=== PATIENT | male | born 1940 | race Caucasian/White ===

== ENCOUNTER 2020-06-19 09:23 | Emergency (ER) | payer MEDICARE, SELFPAY ==
--- NOTE | ~2020-06-19 | XR_ITS ---
EXAMINATION: XR CHEST CLINICAL INFORMATION: Chest pain. COMPARISON: None TECHNIQUE: Frontal view of the chest was obtained. FINDINGS: The lungs are well-expanded and clear acute process. The heart size and pulmonary vascularity is normal. There is moderate spondylosis dorsal spine. No lytic or sclerotic process seen XR/XR chest 1V IMPRESSION: Unremarkable chest exam.
[2020-06-19 09:38] VITALS: BP 147/69; PULSE 60; RESP 16; TEMP 36.6; O2SAT 97; BMI 33.2
--- NOTE | 2020-06-19 09:52 | ED_ITS ---
HPI - Chest Pain General Chief Complaint: Dizziness Stated Complaint: CHILLS,L CP (RESOLVED) Time Seen by Provider: 06/19/20 09:51 Source: patient Mode of arrival: ambulatory Limitations: no limitations History of Present Illness HPI narrative: Patient with no known history of coronary artery disease history of anxiety and gastro oesophageal reflux disease woke up normally at 06:00 felt some gaslike feeling in the epigastric area radiating to mid chest similar to in the past then he noticed pain in the left side of the chest with diaphoresis feeling dizzy which lasted for about 30 minutes patient never had similar feeling in the past. Never had any cardiac evaluation in the past. No chest pain after arrival. MD complaint: chest heaviness Onset (ago): hour(s) Timing of current episode: constant Prior episodes: Yes Onset: during rest Pain location: substernal and left chest Pain radiation: none Severity: moderate Quality: tightness Exacerbating factors: nothing Context: recent illness Associated symptoms: diaphoresis Related Data Allergies Allergy/AdvReac Type Severity Reaction Status Date / Time amoxicillin [AMOXICILLIN] Allergy Severe ANAPHYLAXIS Unverified 01/24/20 15:20 Penicillins [PENICILLINS] Allergy Intermediate RASH Unverified 01/24/20 15:20 Sulfa (Sulfonamide Allergy Mild UNKNOWN Unverified 01/24/20 15:20 Antibiotics) A CHILD [SULFA (SULFONAMIDE ANTIBIOTICS)] penicillin V Allergy Unknown Verified 10/22/14 00:00 Review of Systems Review of Systems: Constitutional : No Weight loss, No Fever, No Chills ENT/Mouth : No sore throat, No Rhinorrhea Eyes: No Eye Pain, No Swelling Cardiovascular : +Chest Pain, no palpitations Respiratory : No Cough, No Sputum, no shortness of breath Gastrointestinal : no Nausea, No Vomiting, No Diarrhea, No abdominal Pain, no black stools Genitourinary : No Dysuria, No Urinary Frequency Musculoskeletal : No joint pain, No Myalgias, No Joint Swelling Skin : No Skin Lesions, No rash Neuro : No Weakness, No Numbness, No Dizziness, No Headache Psych : No Anxiety/Panic, No Depression Heme/Lymph: No Bruising, No Lymphadenopathy Endocrine : No Polyuria, No Polydipsia All other systems reviewed and are negative [facility] Past Medical History Medical History Anxiety GERD (gastroesophageal reflux disease) Hip replacement planned Vertigo Surgical History Total knee replacement status Social History Social History Advance Directives: No Advance Directives Information Provided: No Physical Exam Vital Signs: Vital Signs: Last Vital Signs Temp 97.8 F 06/19/20 13:44 Pulse 58 06/19/20 13:44 Resp 16 06/19/20 13:44 BP 131/92 H 06/19/20 13:44 Pulse Ox 97 06/19/20 13:44 Body Mass Index 33.2 Appearance: Alert. Oriented X3. No acute distress. Eyes: Pupils equal, round and reactive to light. ENT: Pharynx normal. Neck: Normal inspection. Neck supple. CVS: Normal heart rate and rhythm. Pulses normal. Respiratory: No respiratory distress. Breath sounds normal. Abdomen: Soft and nontender. Bowel sounds are present, no mass palpable, no CVA tenderness Skin: Skin warm and dry. Normal skin color. Normal skin turgor. Extremities: No lower extremity edema. Neuro: Oriented X 3. No motor deficit. No sensory deficit. MDM - Chest Pain MDM Narrative Medical decision making narrative: 79 years old with chest pain with no known coronary artery disease EKG was without any acute ischemic changes 2 sets of troponin negative patient without any chest pain at this time patient's history of GERD which likely causing the pain at this time. Will discharge patient home advised to follow-up with PCP Differential Diagnosis Differential diagnosis: Likely stable angina, unstable angina pectoris and chest pain Medical Records Data Attestation: I reviewed the patient's medical records. Lab Data Attestation: I reviewed the patient's lab results. Result diagrams: 06/19/20 11:13 06/19/20 11:13 Labs: Lab Results 06/19/20 06/19/20 06/19/20 Range/Units 10:18 11:13 11:13 WBC 7.0 (4.8-10.8) X10*3/uL RBC 5.37 (4.60-5.80) X10*6/uL Hgb 15.5 (14.0-18.0) g/dl Hct 45.9 (42-52) % MCV 85.5 (80-98) fL MCH 28.9 (27.0-33.0) pg MCHC 33.8 (31.0-36.0) g/dl RDW 13.1 (11.0-16.0) % Plt Count 131 L (160-400) X10*3/uL MPV 10.5 (9.4-12.4) fL Immature Gran % (Auto) 0.3 (0.0-0.4) % Neut % (Auto) 77.9 H (45-73) % Lymph % (Auto) 14.5 L (20-40) % Moody % (Auto) 5.1 (2-11) % Eos % (Auto) 1.6 (0-4) % Baso % (Auto) 0.6 (0-2) % Lymph # (Auto) 1.0 L (1.2-4.9) X10*3/uL Moody # (Auto) 0.4 (0.1-1.2) X10*3/uL Eos # (Auto) 0.1 (0.0-0.4) X10*3/uL Baso # (Auto) 0.0 (0.0-0.2) X10*3/uL Abs Immat Gran (auto) 0.02 (0.00-0.03) X10*3/uL Absolute Neuts (auto) 5.5 (2.0-8.3) X10*3/uL Absolute Nucleated RBC 0.000 (0.0-0.012) X10*3/uL Nucleated RBC % (auto) 0.0 (0.0-0.2) /100WBC PT 12.8 (10.8-13.0) SEC INR 1.1 (0.9-1.1) APTT 29.1 (24.1-38.0) SEC Sodium (135-145) mmol/L Potassium (3.3-5.1) mmol/L Chloride (96-108) mmol/L Carbon Dioxide (22-29) mmol/L Anion Gap (12-20) BUN (9-16) mg/dL Creatinine (0.5-1.4) mg/dL Estim Creat Clear Calc Estimated GFR Random Glucose (60-115) mg/dL Calcium (8.4-10.2) mg/dL Total Bilirubin (0.0-1.0) mg/dL Direct Bilirubin (0.0-0.5) mg/dL AST (5-37) U/L ALT (0-40) U/L Alkaline Phosphatase (39-117) U/L Troponin I High Sens (<3.5-35.0) ng/L Total Protein (6.5-8.0) g/dL Albumin (3.5-5.0) g/dL COVID-19 (JENN) Negative (Negative) COVID-19 Clin Com See Note 06/19/20 06/19/20 06/19/20 Range/Units 11:13 11:13 13:18 WBC (4.8-10.8) X10*3/uL RBC (4.60-5.80) X10*6/uL Hgb (14.0-18.0) g/dl Hct (42-52) % MCV (80-98) fL MCH (27.0-33.0) pg MCHC (31.0-36.0) g/dl RDW (11.0-16.0) % Plt Count (160-400) X10*3/uL MPV (9.4-12.4) fL Immature Gran % (Auto) (0.0-0.4) % Neut % (Auto) (45-73) % Lymph % (Auto) (20-40) % Moody % (Auto) (2-11) % Eos % (Auto) (0-4) % Baso % (Auto) (0-2) % Lymph # (Auto) (1.2-4.9) X10*3/uL Moody # (Auto) (0.1-1.2) X10*3/uL Eos # (Auto) (0.0-0.4) X10*3/uL Baso # (Auto) (0.0-0.2) X10*3/uL Abs Immat Gran (auto) (0.00-0.03) X10*3/uL Absolute Neuts (auto) (2.0-8.3) X10*3/uL Absolute Nucleated RBC (0.0-0.012) X10*3/uL Nucleated RBC % (auto) (0.0-0.2) /100WBC PT (10.8-13.0) SEC INR (0.9-1.1) APTT (24.1-38.0) SEC Sodium 140 (135-145) mmol/L Potassium 4.6 (3.3-5.1) mmol/L Chloride 104 (96-108) mmol/L Carbon Dioxide 30 H (22-29) mmol/L Anion Gap 11 L (12-20) BUN 19 H (9-16) mg/dL Creatinine 0.90 (0.5-1.4) mg/dL Estim Creat Clear Calc 91.0 Estimated GFR > 60 Random Glucose 99 (60-115) mg/dL Calcium 8.8 (8.4-10.2) mg/dL Total Bilirubin 0.5 (0.0-1.0) mg/dL Direct Bilirubin 0.2 (0.0-0.5) mg/dL AST 11 (5-37) U/L ALT 9 (0-40) U/L Alkaline Phosphatase 76 (39-117) U/L Troponin I High Sens < 3.5 < 3.5 (<3.5-35.0) ng/L Total Protein 6.4 L (6.5-8.0) g/dL Albumin 3.9 (3.5-5.0) g/dL COVID-19 (JENN) (Negative) COVID-19 Clin Com ECG Data ECG #1: Attestation: I personally reviewed and interpreted this ECG as follows: Interpretation: Sinus bradycardia with heart rate 58 beats per minute normal intervals normal axis no acute ST T wave changes impression no acute ischemia Discharge Plan Discharge Clinical Impression: Chronic GERD Chest pain Qualifiers: Chest pain type: unspecified Qualified Code(s): R07.9 - Chest pain, unspecified Patient Disposition: Home, Self-Care Instructions: Chest Pain (ED), Gastroesophageal Reflux Disease (ED) Additional Instructions: Continue medications as prescribed by PCP. Follow-up with your PCP for further evaluation. Report to ER if worsening of the chest pain
--- NOTE | 2020-06-19 10:01 | ECG_ITS ---
Test Reason : CHEST PAIN Blood Pressure : / mmHG Vent. Rate : 058 BPM Atrial Rate : 058 BPM P-R Int : 160 ms QRS Dur : 088 ms QT Int : 422 ms P-R-T Axes : 050 -24 056 degrees QTc Int : 414 ms Sinus bradycardia with sinus arrhythmia Otherwise normal ECG When compared with ECG of 05-JUN-2019 18:35, No significant change was found Referred By: Lucio Irwin Electronically Signed By:LONNIE MAN MD
[2020-06-19 11:14] VITALS: BP 146/80; PULSE 57; RESP 15; TEMP 36.4; O2SAT 98
[2020-06-19 11:15] VITALS: BP 136/72; PULSE 58; RESP 16
[2020-06-19 11:19] LABS: MANUAL DIFF FLAG NO
[2020-06-19 11:24] LABS: Basophils Percent Auto 0.6 % (0-2); Eosinophils Absolute Auto 0.1 X10*3/uL (0.0-0.4); Eosinophils Percent Auto 1.6 % (0-4); Hematocrit 45.9 % (42-52); Hemoglobin 15.5 g/dl (14.0-18.0); Imm Gran Abs Auto 0.02 X10*3/uL (0.00-0.03); Imm Gran Pct Auto 0.3 % (0.0-0.4); Lymphocytes Percent Auto 14.5 % (20-40); Mean Corpuscular HGB Conc 33.8 g/dl (31.0-36.0); Mean Corpuscular Hemoglobin 28.9 pg (27.0-33.0); Mean Corpuscular Volume 85.5 fL (80-98); Mean Platelet Volume 10.5 fL (9.4-12.4); Monocytes Absolute Auto 0.4 X10*3/uL (0.1-1.2); Monocytes Percent Auto 5.1 % (2-11); Neutrophils Absolute Auto 5.5 X10*3/uL (2.0-8.3); Neutrophils Percent Auto 77.9 % (45-73); Platelet Count 131 X10*3/uL (160-400); Red Blood Count 5.37 X10*6/uL (4.60-5.80); Red Cell Distribution Width 13.1 % (11.0-16.0)
[2020-06-19 11:34] LABS: INTERNATIONAL NORM RATIO 1.1 (0.9-1.1); Prothrombin Time 12.8 SEC (10.8-13.0)
[2020-06-19 11:37] LABS: Partial Thromboplastin Time 29.1 SEC (24.1-38.0)
[2020-06-19 11:42] LABS: COVID-19 Test Negative (Negative); IDNOW Serial# 9DD0AD1C
[2020-06-19 11:48] LABS: Alanine Aminotransferase 9 U/L (0-40); Albumin Level 3.9 g/dL (3.5-5.0); Alkaline Phosphatase 76 U/L (39-117); Anion Gap 11 (12-20); Aspartate Amino Transferase 11 U/L (5-37); Bilirubin Direct 0.2 mg/dL (0.0-0.5); Bilirubin Total 0.5 mg/dL (0.0-1.0); Blood Urea Nitrogen 19 mg/dL (9-16); Calcium 8.8 mg/dL (8.4-10.2); Carbon Dioxide 30 mmol/L (22-29); Chloride 104 mmol/L (96-108); Estimated Glomerular Filt Rate > 60; Glucose Random 99 mg/dL (60-115); Potassium 4.6 mmol/L (3.3-5.1); Sodium 140 mmol/L (135-145); Total Protein 6.4 g/dL (6.5-8.0)
[2020-06-19 11:49] LABS: Troponin-I High Sensitivity < 3.5 ng/L (<3.5-35.0)
[2020-06-19 13:44] VITALS: BP 131/92; PULSE 58; RESP 16; TEMP 36.6; O2SAT 97
[2020-06-19 13:55] LABS: Troponin-I High Sensitivity < 3.5 ng/L (<3.5-35.0)
== END 2020-06-19 14:58 | disposition home or self-care (01) ==
PROVIDERS: Emergency Provider Internal Medicine; PCP Internal Medicine
DX: K21.9 Gastro-esophageal reflux disease without esophagitis (principal); R07.9 Chest pain, unspecified; R42 Dizziness and giddiness; Z20.822 Contact with and (suspected) exposure to COVID-19
CPT/HCPCS: 36415; 71045; 80048; 80076; 84484; 85025; 85610; 85730; 87635; 93005; 99284

== ENCOUNTER 2020-08-04 09:56 | Outpatient (REF) | payer MEDICARE, SELFPAY ==
[2020-08-04 14:40] LABS: Anion Gap 15 (12-20); Blood Urea Nitrogen 21 mg/dL (9-16); Calcium 9.1 mg/dL (8.4-10.2); Carbon Dioxide 27 mmol/L (22-29); Chloride 104 mmol/L (96-108); Estimated Glomerular Filt Rate > 60; Glucose Random 92 mg/dL (60-115); Potassium 4.6 mmol/L (3.3-5.1); Sodium 141 mmol/L (135-145)
== END 2020-08-04 09:57 | disposition home or self-care (01) ==
LOC: HO.10HDL 09:56
PROVIDERS: Visit Provider Internal Medicine
DX: I10 Essential (primary) hypertension (principal); M19.90 Unspecified osteoarthritis, unspecified site
CPT/HCPCS: 36415; 80048

== ENCOUNTER 2021-02-24 10:26 | Outpatient (REF) | payer MEDICARE, SELFPAY ==
[2021-02-24 13:47] LABS: Basophils Percent Auto 0.6 % (0-2); Eosinophils Absolute Auto 0.1 X10*3/uL (0.0-0.4); Eosinophils Percent Auto 2.1 % (0-4); Hematocrit 47.9 % (42-52); Hemoglobin 16.2 g/dl (14.0-18.0); Imm Gran Abs Auto 0.02 X10*3/uL (0.00-0.03); Imm Gran Pct Auto 0.3 % (0.0-0.4); Lymphocytes Absolute Auto 1.4 X10*3/uL (1.2-4.9); Lymphocytes Percent Auto 20.4 % (20-40); MANUAL DIFF FLAG NO; Mean Corpuscular HGB Conc 33.8 g/dl (31.0-36.0); Mean Corpuscular Hemoglobin 28.7 pg (27.0-33.0); Mean Corpuscular Volume 84.9 fL (80-98); Mean Platelet Volume 11.1 fL (9.4-12.4); Monocytes Absolute Auto 0.5 X10*3/uL (0.1-1.2); Monocytes Percent Auto 6.8 % (2-11); Neutrophils Absolute Auto 4.7 X10*3/uL (2.0-8.3); Neutrophils Percent Auto 69.8 % (45-73); Platelet Count 164 X10*3/uL (160-400); Red Blood Count 5.64 X10*6/uL (4.60-5.80); Red Cell Distribution Width 13.5 % (11.0-16.0); White Blood Count 6.8 X10*3/uL (4.8-10.8)
[2021-02-24 14:43] LABS: Alanine Aminotransferase 9 U/L (0-40); Albumin Level 4.2 g/dL (3.5-5.0); Alkaline Phosphatase 83 U/L (39-117); Anion Gap 16 (12-20); Aspartate Amino Transferase 14 U/L (5-37); Bilirubin Total 0.7 mg/dL (0.0-1.0); Blood Urea Nitrogen 24 mg/dL (9-16); Calcium 9.2 mg/dL (8.4-10.2); Carbon Dioxide 23 mmol/L (22-29); Chloride 106 mmol/L (96-108); Cholesterol 150 mg/dL; Estimated Glomerular Filt Rate > 60; Glucose Fasting 94 mg/dL (60-99); HDL Cholesterol 46 mg/dL; LDL Cholesterol Calculated 88 mg/dl; Potassium 4.2 mmol/L (3.3-5.1); Sodium 141 mmol/L (135-145); Total Protein 6.9 g/dL (6.5-8.0); Triglycerides 84 mg/dL
[2021-02-24 16:42] LABS: Appearance Urine CLOUDY; Color Urine YELLOW; Glucose Urine UA NEG (NEG); Leukocyte Esterase Urine 2+ (NEG); Nitrite Urine NEG (NEG); Specific Gravity - Urine 1.015 (1.005-1.025); UACC Culture Trigger YES; Urine Blood TRACE (NEG); Urine Ketones 5 MG/DL (NEG); Urine Protein 1+ MG/DL (NEG-TRACE)
[2021-02-24 16:51] LABS: Bacteria Urine 3+ /LPF; Squamous Epithelial Cell Urine TRACE /LPF; WBC Urine 50-75 /HPF (0-4)
== END 2021-02-24 10:27 | disposition home or self-care (01) ==
LOC: HO.10HDL 10:26
PROVIDERS: Visit Provider Internal Medicine
DX: I10 Essential (primary) hypertension (principal); R30.0 Dysuria; N40.0 Benign prostatic hyperplasia without lower urinary tract symptoms; K21.9 Gastro-esophageal reflux disease without esophagitis; M19.90 Unspecified osteoarthritis, unspecified site
CPT/HCPCS: 36415; 80053; 80061; 81001; 85025; 87086

== ENCOUNTER 2021-03-02 08:39 | Outpatient (REF) | payer MEDICARE, SELFPAY ==
[2021-03-02 14:08] LABS: Appearance Urine CLOUDY; Color Urine YELLOW; Glucose Urine UA NEG (NEG); Leukocyte Esterase Urine 2+ (NEG); Nitrite Urine POS (NEG); UACC Culture Trigger YES; Urine Blood 1+ (NEG); Urine Ketones NEG (NEG); Urine Protein TRACE MG/DL (NEG-TRACE)
[2021-03-02 14:27] LABS: Bacteria Urine 1+ /LPF; Squamous Epithelial Cell Urine 1+ /LPF; WBC Urine TNTC /HPF (0-4)
== END 2021-03-02 08:40 | disposition home or self-care (01) ==
LOC: HO.10HDL 08:39
PROVIDERS: Visit Provider Internal Medicine
DX: R35.0 Frequency of micturition (principal)
CPT/HCPCS: 81001; 87086

== ENCOUNTER 2021-12-08 08:52 | Outpatient (REF) | payer MEDICARE, SELFPAY ==
[2021-12-08 11:22] LABS: MANUAL DIFF FLAG NO
[2021-12-08 11:46] LABS: Basophils Absolute Auto 0.1 X10*3/uL (0.0-0.2); Basophils Percent Auto 0.9 % (0-2); Eosinophils Absolute Auto 0.2 X10*3/uL (0.0-0.4); Eosinophils Percent Auto 3.2 % (0-4); Hematocrit 47.1 % (42.0-52.0); Hemoglobin 15.3 g/dl (14.0-18.0); Imm Gran Abs Auto 0.02 X10*3/uL (0.00-0.03); Imm Gran Pct Auto 0.4 % (0.0-0.4); Lymphocytes Absolute Auto 1.4 X10*3/uL (1.2-4.9); Lymphocytes Percent Auto 25.8 % (20-40); Mean Corpuscular HGB Conc 32.5 g/dl (31.0-36.0); Mean Corpuscular Hemoglobin 27.2 pg (27.0-33.0); Mean Corpuscular Volume 83.7 fL (80.0-98.0); Mean Platelet Volume 10.7 fL (9.4-12.4); Monocytes Absolute Auto 0.4 X10*3/uL (0.1-1.2); Monocytes Percent Auto 6.9 % (2-11); Neutrophils Absolute Auto 3.4 x10*3/uL (2.0-8.3); Neutrophils Percent Auto 62.8 % (45-73); Platelet Count 145 X10*3/uL (160-400); Red Blood Count 5.63 X10*6/uL (4.60-5.80); Red Cell Distribution Width 13.2 % (11.0-16.0); White Blood Count 5.4 X10*3/uL (4.8-10.8)
[2021-12-08 12:13] LABS: Alanine Aminotransferase 6 U/L (0-40); Alkaline Phosphatase 92 U/L (39-117); Anion Gap 17 (12-20); Aspartate Amino Transferase 12 U/L (5-37); Bilirubin Total 0.6 mg/dL (0.0-1.0); Blood Urea Nitrogen 17 mg/dL (9-16); Carbon Dioxide 23 mmol/L (22-29); Chloride 104 mmol/L (96-108); Estimated Glomerular Filt Rate > 60; Glucose Random 109 mg/dL (60-115); Potassium 4.4 mmol/L (3.3-5.1); Sodium 140 mmol/L (135-145); Total Protein 6.7 g/dL (6.5-8.0)
== END 2021-12-08 08:53 | disposition home or self-care (01) ==
LOC: HO.HMGCLDS 08:52
PROVIDERS: PCP Internal Medicine; Visit Provider Internal Medicine
DX: I10 Essential (primary) hypertension (principal); N40.0 Benign prostatic hyperplasia without lower urinary tract symptoms
CPT/HCPCS: 36415; 80053; 85025

== ENCOUNTER 2022-06-16 08:27 | Outpatient (REF) | payer MEDICARE, SELFPAY ==
[2022-06-16 11:34] LABS: Cholesterol 143 mg/dL; HDL Cholesterol 44 mg/dL; LDL Cholesterol Calculated 85 mg/dl; Triglycerides 72 mg/dL
== END 2022-06-16 08:28 | disposition home or self-care (01) ==
LOC: HO.10HDL 08:27
PROVIDERS: Visit Provider Internal Medicine
DX: K21.9 Gastro-esophageal reflux disease without esophagitis (principal); I10 Essential (primary) hypertension
CPT/HCPCS: 36415; 80061

== ENCOUNTER → 2023-02-28 07:42 | Outpatient (REF) | payer MEDICARE, SELFPAY ==
--- NOTE | 2023-02-28 07:45 | CA_ITS ---
Transthoracic Echocardiogram Patient (Last, First, Middle): Aki Vickers R Gender: Male Date of : 1940 Age: 82 Procedure Date: 02/28/2023 Procedure Type: Transthoracic Echocardiogram Location: OP Height: 182.88 cm Weight: 112.49 kg BSA: 2.33 m2 Heart Rate: 71 bpm BP: 145 / 90 mmHg Oncology Radiation Physician: DELTA Referring MD: Lam Reid MD Blanket Weaver: Gerardo Triana MD Symptoms: R06.02 SOB WITH SANTACRUZ Study Quality: Technically Difficult/w Contrast ECG Rhythm: Arrhythmia Conclusions: - 1. Technically difficult study despite use of contrast agent 2. Normal LV ejection fraction of 60- 65% with mild LVH 3. Limited visualization cardiac valves with normal cardiac valvular Dopplers 4. Normal measured RV systolic pressure Findings Procedure Information Contrast agent, definity, is being given per protocol without apparent complications. Left Ventricle Normal left ventricular size and systolic function. There is mildly increased left ventricular wall thickness. Spectral Doppler is indicative of an impaired relaxation filling pattern. Right Ventricle The right ventricle was not well visualized. Atria The left atrium was not well visualized. Interatrial shunt cannot be excluded. The right atrium was not well visualized. Aortic Valve The aortic valve was not well visualized. There is no aortic valve stenosis. There is no aortic valve regurgitation. Mitral Valve The mitral valve was not well visualized. There is no mitral valve regurgitation. Pulmonic Valve The pulmonic valve was not well visualized. Tricuspid Valve The tricuspid valve was not well visualized. There is trace tricuspid valve regurgitation. The right ventricular systolic pressure is normal. The right ventricular systolic pressure is 19 mmHg. Normal right atrial pressure. Great Vessels The aorta was not well visualized. The pulmonary artery was not well visualized. Venous The inferior vena cava is normal in size and collapses greater than 50% with inspiration. Pericardium/Pleural The pericardium was not well visualized. Prior Study Comparison No prior study available for comparison. Measurements 2D Linear Measurements IVSd: 1.21 0.6-0.9/0.6-1.0 cm LVIDd: 5.09 3.9-5.3/4.2-5.9 cm LVIDd Index: 2.18 2.4-3.2/2.2-3.1 cm/m2 LVIDs: 3.07 2.0-3.6 cm LVPWd: 1.28 0.7-1.1 cm LA Diam: 4.70 2.7-3.8/3.0-4.0 cm LAIDs Index: 2.02 1.5-2.3 cm/m2 LV Mass: 315.79 67-162/88-224 g LV Mass Index: 135.53 43-95/49-115 g/m2 LVOT Diam: 2.30 3.0+(-)1.3 cm 2D Systolic Function EF 4C: 68.80 >55% EF 2C: 51.10 >55% EF BiP: 62.50 >55% Mitral Valve MV Pk E: 0.83 MV PK A: 0.69 MV Decel Time: 215.00 E/A: 1.20 E'Lateral: 7.40 E'Medial: 7.83 E/E' Med: 10.60 E/E' Lat: 11.20 PHT: 63.00 MVA PHT: 3.49 Decel Isabela: 3.87 Aortic Valve AoV Pk Troy: 1.14 AoV Mn Troy: 0.85 AoV VTI: 0.25 AoV Pk Grad: 5.00 Aov Mn Grad: 3.00 HAYDEE Cont.VTI: 2.73 LVOT LVOT Pk Troy: 0.78 LVOT Mn Troy: 0.53 LVOT VTI: 0.17 LVOT Pk Grad: 2.00 LVOT Mn Grad: 1.00 LVOT Diam: 2.30 LVOT Area: 4.15 Diastolic Function MV Pk E: 0.83 MV Pk A: 0.69 E/A: 1.20 E'Medial: 7.83 E/E' Med: 10.60 E' Laterial: 7.40 E/E' Lat: 11.20 Right Ventricle TAPSE (mm): 31.00 TVS' Troy: 17.10 Tricuspid Valve TR Pk Troy: 2.00 TR Pk Grad: 16.00 RA Press: 3.00 RVSP: 19.00 Great Vessels Aorta Sinus of Valsalva: 4.00 2.0-3.5 cm Ao Asc: 3.30 2.1-3.4 cm Pulmonary Valve PV Pk Troy: 0.84 Peak PV Grad: 3.00 Updated in Other Vendor System with Status of Final Gerardo Triana MD electronically signed on 03/01/2023 12:07:57 PM with status of Final
== END ==
LOC: HO.CARD 07:42
PROVIDERS: PCP Internal Medicine; Visit Provider Internal Medicine
DX: R06.02 Shortness of breath (principal)
CPT/HCPCS: 93306; Q9957

== ENCOUNTER → 2023-02-28 07:45 | Outpatient (BNV) | payer MEDICARE, SELFPAY | PROVIDERS: PCP Internal Medicine; Visit Provider Internal Medicine Cardiovascular Disease | DX: R06.02 Shortness of breath (principal) | CPT/HCPCS: 93306 ==

== ENCOUNTER 2023-03-06 07:05 | Emergency (ER) | payer MEDICARE, SELFPAY ==
[2023-03-06 07:08] VITALS: BP 148/74; PULSE 100; RESP 18; TEMP 36.6; O2SAT 98; BMI 34.4
--- NOTE | 2023-03-06 07:52 | ED.MALEGU ---
HPI - Male Genitourinary General Chief complaint: Urogenital-Male Stated complaint: urinating blood Time Seen by Provider: 03/06/23 07:26 Source: patient and family (Son) Mode of arrival: ambulatory History of Present Illness HPI Narrative: 82-year-old male with known BPH in currently on finasteride presents with complaints of straining to urinate last night and then noted blood in his urine without any abdominal/pelvic pain and otherwise no pain or burning on urination. Patient states that several times throughout the night he has had blood in his urine but also increase the amount of water intake and states that his last urination at home appeared to have cleared up. He is currently followed at [facility]. Related Data Previous Rx's Medication Instructions Recorded sucralfate 1 gram tablet (Carafate) 1 g PO TID PRN For stomach upset 06/19/20 #90 tabs acetaminophen 300 mg-codeine 15 mg 1 tab PO BID PRN pain #14 tabs 08/10/22 tablet azithromycin 250 mg tablet See Rx Instructions PO .COMPLEX #6 08/10/22 tabs valacyclovir 500 mg tablet 500 mg PO BID #14 tabs 08/10/22 nitrofurantoin 100 mg PO Q12H 7 days #14 caps 03/06/23 monohydrate/macrocrystals 100 mg capsule (Macrobid) Allergies Allergy/AdvReac Type Severity Reaction Status Date / Time amoxicillin [AMOXICILLIN] Allergy Severe ANAPHYLAXIS Verified 03/06/23 07:08 Penicillins [PENICILLINS] Allergy Intermediate RASH Verified 03/06/23 07:08 Sulfa (Sulfonamide Allergy Mild UNKNOWN Verified 03/06/23 07:08 Antibiotics) A CHILD [SULFA (SULFONAMIDE ANTIBIOTICS)] penicillin V Allergy Unknown Hives Verified 03/06/23 07:08 Review of Systems Review of Systems: Pertinent positives and negatives as stated in HPI [facility] Past Medical History Source: nursing notes reviewed Medical History Vertigo Hip replacement planned Anxiety GERD (gastroesophageal reflux disease) Surgical History Total knee replacement status Social History Social History Patient Tobacco Use Status: Former Tobacco user Smoked in Last 30 Days: No Use of substances other than those prescribed or required for medical reasons: No Advance Directives: No Advance Directives Information Provided: Yes Physical Exam Vital Signs: Vital Signs: Last Vital Signs Temp 98 F 03/06/23 07:08 Pulse 100 03/06/23 07:08 Resp 18 03/06/23 07:08 BP 148/74 H 03/06/23 07:08 Pulse Ox 98 03/06/23 07:08 O2 Del Method Room Air 03/06/23 07:08 BMI result Body Mass Index 34.4 VITAL SIGNS: Reviewed. GENERAL: Well developed, well nourished, in no acute distress. HEAD: Normocephalic/atraumatic EYES: PERRLA, EOMI EARS: Ext canals without abnormality NOSE: Nares patent bilateral OROPHARYNX: no oral lesions noted, posterior pharynx clear NECK: Supple, no adenopathy LUNGS: Normal breath sounds. No adventitious sounds or accessory muscle use. SpO2<98> CARDIOVASCULAR: Regular rate and rhythm without noted murmurs ABDOMEN: Soft, non-tender, non-distended with bowel sounds. MUSCULOSKELETAL: No tenderness, deformities, or effusions noted on gross inspection. EXTREMITIES: No cyanosis, clubbing or edema. SKIN: Inspection of the skin reveals no rashes NEUROLOGIC: Alert and oriented x 4. Strength and sensation to light touch were grossly intact x 4. Medical Decision Making Medical Decision Making [facility] Narrative: 82-year-old male with history and clinical presentation most consistent with transient prostatic bleeding secondary to strain but will rule out urinary tension/urinary tract infection. It does seem as per patient's history that the urine has already begun to clear up. Patient is not currently on any anticoagulation. PreBladderScan: 242 PVR: 97 My interpretation is that patient has a urinary tract infection with associated prostatic bleeding, will receive 1st dose of antibiotics here in the emergency room and be discharged on remaining course. In addition, patient will be referred back to his outpatient urologist. Differential Diagnosis Differential Diagnoses: The differential diagnosis associated with the presentation includes Please see the discussion above Admission/Observation Consideration of admission/observation: Escalation of care including admission/observation considered Please see the discussion above Lab Data [facility] Lab Attestation statement: I reviewed the patient's lab results. Please see the discussion above Labs: Lab Results 03/06/23 Range/Units 08:45 Urine Color Red A Urine Appearance Cloudy Urine pH 8.5 (5.0-9.0) Ur Specific [place] 1.010 (1.005-1.025) Urine Protein Trace (Neg-Trace) mg/dL Urine Glucose (UA) Negative (Negative) mg/dL Urine Ketones Negative (Negative) mg/dL Urine Blood Large (3+) H (Negative) Urine Nitrite Negative (Negative) Ur Leukocyte Esterase Moderate (2+) H (Negative) Urine RBC >20 H (0-2) /HPF Urine WBC >50 H (0-5) /HPF Ur Squamous Epith Cells 0-2 (0-2) /HPF Urine Bacteria None Seen (None Seen) Hyaline Casts 0-2 (0-2) /LPF Chronic Conditions Patient?s care impacted by: Hypertension Discharge Plan Discharge Clinical Impression: Urinary tract infection, Hematuria Patient Disposition: Home, Self-Care Instructions: Urinary Tract Infection in Men (ED), Hematuria (ED) Additional Instructions: 1. Resume all home medications as prescribed. 2. Complete the entire course of antibiotics as prescribed. And continue to drink plenty of water. 3. Please follow-up with your urologist by calling the office on Tuesday morning. 4. Please contact your primary care provider as well. Return to the ER for any worsening symptoms. Prescriptions: New nitrofurantoin monohyd/m-cryst [Macrobid] 100 mg capsule 100 mg PO Q12H 7 Days Qty: 14 0RF Rx Instructions: must administer with a meal/food No Action sucralfate [Carafate] 1 gram tablet 1 g PO TID PRN (Reason: For stomach upset) Qty: 90 0RF Rx Instructions: Take 1 tablet 1 hour before your meals valacyclovir 500 mg tablet 500 mg PO BID Qty: 14 0RF acetaminophen-codeine 300-15 mg tablet 1 tab PO BID PRN (Reason: pain) Qty: 14 0RF azithromycin 250 mg tablet See Rx Instructions PO .COMPLEX Qty: 6 0RF Rx Instructions: take 500 mg today (day 1), then 250 mg for 4 days (days 2-5) PO Referrals: Lam Reid MD [Primary Care Provider] -
[2023-03-06 08:54] LABS: Appearance Urine Cloudy; Color Urine Red; Glucose Urine UA Negative (Negative); Leukocyte Esterase Urine Moderate (2+) (Negative); Nitrite Urine Negative (Negative); PH 8.5 (5.0-9.0); UMIC TRIGGER UACC YES; Urine Blood Large (3+) (Negative); Urine Ketones Negative (Negative); Urine Protein Trace mg/dL (Neg-Trace)
[2023-03-06 08:58] LABS: Bacteria Urine None Seen (None Seen); Hyaline Casts Urine 0-2 /LPF (0-2); RBC Urine >20 /HPF (0-2); Squamous Epithelial Cell Urine 0-2 /HPF (0-2); UACC Culture Trigger YES; WBC Urine >50 /HPF (0-5)
[2023-03-06 09:04] VITALS: BP 145/75; PULSE 62; RESP 16; TEMP 36.5; O2SAT 97
--- NOTE | 2023-03-06 09:07 | PC.NURSE ---
this RN resumed care of pt at this time. a&ox3, vss and up to date. pt able to ambulate to bathroom w/ cane w/ a steady gait and no difficulties. pt states most recent urine appearance was clear. urine sample bedside is dark red. pt verbalizes sx of urinary frequency/hematuria started yesterday. pt denies dysuria/n/fever/chills. tech performed bladder scan - pre = 242ml & post = 97ml. abdomen nontender upon palpation. pt resting comfortably in bed in no apparent distress. son bedside for support. respirations even and unlabored. call sanchez placed within reach.
[2023-03-06] MEDS: Nitrofurantoin Monohyd/M-Cryst 100 MG CAPSULE PO (09:28)
--- NOTE | 2023-03-06 09:29 | PC.NURSE ---
medicated per provider order/provided w/ d/c paperwork.
== END 2023-03-06 09:30 | disposition home or self-care (01) ==
PROVIDERS: Emergency Provider Student in an Organized Health Care Education/Training Program; PCP Internal Medicine
DX: N39.0 Urinary tract infection, site not specified (principal); R31.9 Hematuria, unspecified; Z87.891 Personal history of nicotine dependence; Z79.899 Other long term (current) drug therapy
CPT/HCPCS: 51798; 81001; 87086; 99284

== ENCOUNTER 2023-03-28 08:16 | Outpatient (REF) | payer MEDICARE, SELFPAY ==
[2023-03-28 10:34] LABS: MANUAL DIFF FLAG NO
[2023-03-28 10:49] LABS: Basophils Absolute Auto 0.1 X10*3/uL (0.0-0.2); Basophils Percent Auto 0.8 % (0-2); Eosinophils Absolute Auto 0.2 X10*3/uL (0.0-0.4); Eosinophils Percent Auto 2.7 % (0-4); Hematocrit 43.3 % (42.0-52.0); Hemoglobin 14.1 g/dl (14.0-18.0); Imm Gran Abs Auto 0.02 X10*3/uL (0.00-0.03); Imm Gran Pct Auto 0.3 % (0.0-0.4); Lymphocytes Absolute Auto 1.3 X10*3/uL (1.2-4.9); Lymphocytes Percent Auto 17.4 % (20-40); Mean Corpuscular HGB Conc 32.6 g/dl (31.0-36.0); Mean Corpuscular Hemoglobin 26.3 pg (27.0-33.0); Mean Corpuscular Volume 80.8 fL (80.0-98.0); Mean Platelet Volume 10.1 fL (9.4-12.4); Monocytes Absolute Auto 0.6 X10*3/uL (0.1-1.2); Monocytes Percent Auto 7.8 % (2-11); Neutrophils Absolute Auto 5.3 x10*3/uL (2.0-8.3); Platelet Count 199 X10*3/uL (160-400); Red Blood Count 5.36 X10*6/uL (4.60-5.80); Red Cell Distribution Width 13.9 % (11.0-16.0); White Blood Count 7.5 X10*3/uL (4.8-10.8)
[2023-03-28 11:26] LABS: Alanine Aminotransferase 5 U/L (0-40); Albumin Level 3.6 g/dL (3.5-5.0); Alkaline Phosphatase 91 U/L (39-117); Anion Gap 13 (12-20); Aspartate Amino Transferase 10 U/L (5-37); Bilirubin Total 0.6 mg/dL (0.0-1.0); Blood Urea Nitrogen 15 mg/dL (9-16); Calcium 9.2 mg/dL (8.4-10.2); Carbon Dioxide 27 mmol/L (22-29); Chloride 104 mmol/L (96-108); Cholesterol 130 mg/dL (<200); Estimated Glomerular Filt Rate > 60; Glucose Fasting 95 mg/dL (60-99); HDL Cholesterol 41 mg/dL (>40); LDL Cholesterol Calculated 76 mg/dL (<100); Potassium 3.8 mmol/L (3.3-5.1); Sodium 140 mmol/L (135-145); Total Protein 7.3 g/dL (6.5-8.0); Triglycerides 67 mg/dL (<150)
[2023-03-28 11:30] LABS: Prostate Specific Antigen Scr 1.68 ng/mL (<0.05-4.0)
== END 2023-03-28 08:17 | disposition home or self-care (01) ==
LOC: HO.10HDL 08:16
PROVIDERS: Visit Provider Internal Medicine
DX: I10 Essential (primary) hypertension (principal); K57.90 Diverticulosis of intestine, part unspecified, without perforation or abscess without bleeding; N40.0 Benign prostatic hyperplasia without lower urinary tract symptoms; K21.9 Gastro-esophageal reflux disease without esophagitis; Z12.5 Encounter for screening for malignant neoplasm of prostate
CPT/HCPCS: 36415; 80053; 80061; 84153; 85025

== ENCOUNTER 2023-09-13 08:49 | Outpatient (AMB) | payer MEDICARE, SELFPAY ==
[2023-09-13 08:58] VITALS: BMI 33.9
--- NOTE | 2023-09-13 08:58 | A.OFFVIS_ITS ---
Vital Signs 09/13/23 08:58 Height 6 ft Weight 250 lb BMI 33.9 Intake Visit Reasons: New Pt - Left 3rd Digit Trigger Finger Intake Note: Aki is a 83 year old male who presents today as a new patient for a evaluation of his left 3rd digit trigger finger. Patient reports ongoing locking for about 1 month . He states that his middle finger stays locked in place when he pulls. Reports swelling, trouble gripping, and hand weakness. Hvac Residential Service Technician Required: No Accompanied by: Self / Same As Patient Allergies amoxicillin [AMOXICILLIN] Allergy (Severe, Verified 09/13/23 08:59) ANAPHYLAXIS Penicillins [PENICILLINS] Allergy (Intermediate, Verified 09/13/23 08:59) RASH Sulfa (Sulfonamide Antibiotics) [SULFA (SULFONAMIDE ANTIBIOTICS)] Allergy (Mild, Verified 09/13/23 08:59) UNKNOWN A CHILD penicillin V Allergy (Unknown, Verified 09/13/23 08:59) Hives HPI HPI New Pt - Left 3rd Digit Trigger Finger: Details: 83-year-old male who presents in the office today, as a new patient, for an janelle luation of a left middle finger pain. Patient was referred to the office by Dr. Lam Reid. He reports ongoing locking for the past month, since 08/2023. He claims the left middle finger stays locked until he pulls it. Confirms edema, trouble gripping, and weakness. [facility] Medical History Vertigo Hip replacement planned Anxiety GERD (gastroesophageal reflux disease) Surgical History Total knee replacement status Social History Patient Tobacco Use Status: Former Tobacco user Review of Systems Const All systems reviewed & are unremarkable except as noted in HPI and below Physical Exam Vital Signs: BMI result Body Mass Index 33.9 Const General: cooperative, healthy appearing and no acute distress Orientation/consciousness: patient oriented x3 Resp Effort & Inspection: normal respiratory effort and able to speak in complete sentences Cardio Rate: regular rate Peripheral pulses: Peripheral pulses 2+ throughout GI Palpation (GI): Soft to palpation Skin General skin exam: no rashes or lesions noted Lesions: no lesions Rashes: no rashes Neuro General: patient oriented x3 Extrem Other: Left hand: Normal to inspection. No ecchymosis, erythema, or edema. Able to perform full finger flexion, extension, abduction, adduction, finger cross, okay sign, and thumbs up without deficit. Able to make a closed fist. Active triggering of the middle finger. Pain with palpation over the middle finger A1 jill. Baseline hand tremor. Sensation intact. Capillary refill is brisk. Radial pulse intact. Office Procedures Joint Inj/Aspir; Non-Pain Clin Joint Injection/Drain Prep: site was prepped using aseptic technique and injection warnings given Approach Used: other (volar at the A1 jill ) Procedure: The patient tolerated the procedure well, but had some pain with the injection and there was some relief with the local anesthesia Trigger Finger Trigger Finger Middle Joint Injection: Right Middle Coding Details: 1cc 2% plain lido 1cc dexa Procedure code (CPT) selection complete Assessment & Plan Assessment & Plan (1) Trigger middle finger of left hand: Code(s): M65.332 - Trigger finger, left middle finger Category: Medical Plan Mr. Vickers is an 83-year-old male who presents in the office today, as a new patient, for an evaluation of a left middle finger pain. Patient was referred to the office by Dr. Lam Reid. He reports ongoing locking for the past month, since 08/2023. He claims the left middle finger stays locked until he pulls it. Confirms edema, trouble gripping, and weakness. The patient was offered a cortisone injection in the left hand middle finger. The patient was explained the risk, benefits, and alternatives to receiving this injection. After receiving consent for the injection, the patient had the procedure done while in the office today. The patient tolerated the procedure well with no complications. Follow up will be PRN, or sooner if needed. Patient Instructions: Scribed by Pratima Tomlinson family practice medical doctor, for Mei Bradshaw PA-C on 09/13/2023 at 8:52 am, EST. Coding Level of Care Code New Pt Level 4 (01239) Diagnoses Trigger middle finger of left hand M65.332 CPT Codes Trigger Finger ([id number])
== END 2023-09-13 09:34 | disposition home or self-care (01) ==
PROVIDERS: PCP Internal Medicine; Visit Provider Physician Assistant
DX: M65.332 Trigger finger, left middle finger (principal)
CPT/HCPCS: 20550; 99203

== ENCOUNTER → 2023-09-13 08:49 | Outpatient (BNVA) | payer MEDICARE, SELFPAY | PROVIDERS: PCP Internal Medicine; Visit Provider Physician Assistant | DX: M65.332 Trigger finger, left middle finger (principal) | CPT/HCPCS: 20550; 99202; J1100 ==

== ENCOUNTER 2023-12-07 11:21 | Outpatient (REF) | payer MEDICARE, SELFPAY ==
[2023-12-07 12:27] LABS: MANUAL DIFF FLAG NO
[2023-12-07 12:37] LABS: Basophils Absolute Auto 0.1 X10*3/uL (0.0-0.2); Basophils Percent Auto 0.8 % (0-2); Eosinophils Absolute Auto 0.2 X10*3/uL (0.0-0.4); Eosinophils Percent Auto 2.2 % (0-4); Hematocrit 45.1 % (42.0-52.0); Hemoglobin 15.2 g/dl (14.0-18.0); Imm Gran Abs Auto 0.04 X10*3/uL (0.00-0.03); Imm Gran Pct Auto 0.6 % (0.0-0.4); Lymphocytes Absolute Auto 1.1 X10*3/uL (1.2-4.9); Lymphocytes Percent Auto 15.3 % (20-40); Mean Corpuscular HGB Conc 33.7 g/dl (31.0-36.0); Mean Corpuscular Hemoglobin 27.5 pg (27.0-33.0); Mean Corpuscular Volume 81.7 fL (80.0-98.0); Monocytes Absolute Auto 0.6 X10*3/uL (0.1-1.2); Monocytes Percent Auto 7.8 % (2-11); Neutrophils Absolute Auto 5.3 x10*3/uL (2.0-8.3); Neutrophils Percent Auto 73.3 % (45-73); Platelet Count 210 X10*3/uL (160-400); Red Blood Count 5.52 X10*6/uL (4.60-5.80); White Blood Count 7.2 X10*3/uL (4.8-10.8)
[2023-12-07 13:17] LABS: Anion Gap 14 (12-20); Blood Urea Nitrogen 17 mg/dL (9-16); C Reactive Protein 4.91 mg/dL (< or = 0.50); Carbon Dioxide 25 mmol/L (22-29); Chloride 103 mmol/L (96-108); Estimated Glomerular Filt Rate > 60; Glucose Random 96 mg/dL (60-115); Potassium 3.7 mmol/L (3.3-5.1); Sodium 138 mmol/L (135-145)
[2023-12-07 13:33] LABS: Thyroid Stimulating Hormone 1.56 uIU/mL (0.32-4.0)
[2023-12-07 13:34] LABS: Vitamin B12 316 pg/mL (200-900)
[2023-12-08 21:08] LABS: Gliadin Deamidated IgA Ab <1.0 U/mL; Gliadin Deamidated IgG Ab <1.0 U/mL
[2023-12-09 22:23] LABS: Transglutaminase Ab IgG 1.8 U/mL
== END 2023-12-07 11:22 | disposition home or self-care (01) ==
LOC: HO.10HDL 11:21
PROVIDERS: Visit Provider Internal Medicine
DX: I10 Essential (primary) hypertension (principal); R53.83 Other fatigue; K21.9 Gastro-esophageal reflux disease without esophagitis; R52 Pain, unspecified
CPT/HCPCS: 36415; 80048; 82378; 82550; 82607; 84443; 85025; 86140; 86258; 86364

== ENCOUNTER 2024-02-23 12:15 | Day surgery (SDC) | payer MEDICARE, SELFPAY ==
--- NOTE | 2024-02-21 09:47 | HO.ANESPROP2 ---
Documented by User: Bere Staples NP 02/21/24 09:48 HPI - Anesthesia Eval Consult details Narrative: 83yo M for Colonoscopy PMFSH Active Problems Active Problems: All Active Problems Trigger middle finger of left hand (Acute) Herpes zoster (Acute) Past Medical History Medical History Hearing loss in right ear Hiatal hernia BPH (benign prostatic hyperplasia) Diverticulosis HTN (hypertension) Vertigo Hip replacement planned Anxiety GERD (gastroesophageal reflux disease) Surgical History Surgical History Hx of bilateral hip replacements Hx of tonsillectomy History of left knee replacement Hx of right knee surgery Hx of appendectomy H/O colonoscopy Total knee replacement status Social History Social History Patient Tobacco Use Status: Former Tobacco user Have you been hit, kicked, punched, or otherwise hurt by someone within the past year? If so, by whom?: No Are you DNR?: No Advance Directives: No Advance Directives Information Provided: Yes Nutrition Risks: No Nutritional Risk Meds Allergies Allergy/AdvReac Type Severity Reaction Status Date / Time amoxicillin [AMOXICILLIN] Allergy Severe ANAPHYLAXIS Verified 09/13/23 08:59 Penicillins [PENICILLINS] Allergy Intermediate RASH Verified 09/13/23 08:59 Sulfa (Sulfonamide Allergy Mild UNKNOWN Verified 09/13/23 08:59 Antibiotics) A CHILD [SULFA (SULFONAMIDE ANTIBIOTICS)] penicillin V Allergy Unknown Hives Verified 09/13/23 08:59 Home Medications ?Medication ?Instructions ?Recorded ?Confirmed ?Last Taken ?Type gabapentin 100 mg capsule 100 mg PO DAILY PRN Pain 09/13/23 02/21/24 Unknown History amlodipine 5 mg tablet 5 mg PO DAILY 02/21/24 02/21/24 02/23/24 History aspirin 81 mg tablet,delayed 81 mg PO DAILY 02/21/24 02/21/24 02/08/24 History release ciprofloxacin HCl 500 mg tablet 500 mg PO BID 02/21/24 02/21/24 Unknown History doxazosin 2 mg tablet 2 mg PO DAILY 02/21/24 02/21/24 Unknown History finasteride 5 mg tablet 5 mg PO DAILY 02/21/24 02/21/24 02/23/24 History omeprazole 40 mg capsule,delayed 40 mg PO DAILY 02/21/24 02/21/24 02/23/24 History release Assessment and Plan Assessment Anesthesia Assessment: Chart Reviewed Documented by User: Precious Montelongo MD 02/23/24 13:53 [facility] Past Medical History Medical History Hearing loss in right ear Hiatal hernia BPH (benign prostatic hyperplasia) Diverticulosis HTN (hypertension) Vertigo Hip replacement planned Anxiety GERD (gastroesophageal reflux disease) Surgical History Surgical History Hx of bilateral hip replacements Hx of tonsillectomy History of left knee replacement Hx of right knee surgery Hx of appendectomy H/O colonoscopy Total knee replacement status History of Problems with Anesthesia: No Social History Social History Patient Tobacco Use Status: Former Tobacco user Have you been hit, kicked, punched, or otherwise hurt by someone within the past year? If so, by whom?: No Are you DNR?: No Advance Directives: No Advance Directives Information Provided: Yes Nutrition Risks: No Nutritional Risk Meds Allergies Allergy/AdvReac Type Severity Reaction Status Date / Time amoxicillin [AMOXICILLIN] Allergy Severe ANAPHYLAXIS Verified 09/13/23 08:59 Penicillins [PENICILLINS] Allergy Intermediate RASH Verified 09/13/23 08:59 Sulfa (Sulfonamide Allergy Mild UNKNOWN Verified 09/13/23 08:59 Antibiotics) A CHILD [SULFA (SULFONAMIDE ANTIBIOTICS)] penicillin V Allergy Unknown Hives Verified 09/13/23 08:59 Home Medications ?Medication ?Instructions ?Recorded ?Confirmed ?Last Taken ?Type gabapentin 100 mg capsule 100 mg PO DAILY PRN Pain 09/13/23 02/21/24 Unknown History amlodipine 5 mg tablet 5 mg PO DAILY 02/21/24 02/21/24 02/23/24 History aspirin 81 mg tablet,delayed 81 mg PO DAILY 02/21/24 02/21/24 02/08/24 History release ciprofloxacin HCl 500 mg tablet 500 mg PO BID 02/21/24 02/21/24 Unknown History doxazosin 2 mg tablet 2 mg PO DAILY 02/21/24 02/21/24 Unknown History finasteride 5 mg tablet 5 mg PO DAILY 02/21/24 02/21/24 02/23/24 History omeprazole 40 mg capsule,delayed 40 mg PO DAILY 02/21/24 02/21/24 02/23/24 History release Exam Airway Mallampati Class: III TM Dist: >3cm Neck ROM: Limited Partial: Upper and Lower Loose/Missing/Broken Teeth: Yes, Upper and Lower Heart: RRR Lungs: CTA Assessment and Plan Assessment Anesthesia Assessment: Anesthesia Plan Discussed Final Anesthetic Review History of Problems with Anesthesia: No NPO: Yes ASA Class: II Final Preanesthetic Review: Meds/Allgs Chart Reviewed, Consent Obtained/Reviewed and Anes Risks/Benef Reviewed Patient Risk: Low Procedure Risk: Low Anesthetic Plan Anesthetic Plan: MAC: Disposition: Standard PACU
[2024-02-21 11:12] VITALS: BMI 31.9
[2024-02-23 12:51] VITALS: BP 122/85; PULSE 67; RESP 20; TEMP 36.9; O2SAT 97; BMI 32.1
--- NOTE | 2024-02-23 13:11 | PC.NURSE ---
pt [place] lower extremities edema noted normal per patient
[2024-02-23] MEDS: Lactated Ringers 1,000 ML 100 ML IVCONT (13:21)
[2024-02-23 15:10] VITALS: BP 115/69; PULSE 70; RESP 12; TEMP 36.9; O2SAT 97
[2024-02-23 15:25] VITALS: BP 131/76; PULSE 61; RESP 14; O2SAT 94
--- NOTE | 2024-02-23 15:27 | PM.OP ---
Brief Operative Note Date of Service: 02/23/24 Pre-op diagnosis: Change in BM's Post-op diagnosis: other (Colitis, Colon polyps) Procedure: Colonoscopy to the cecum with biopsies, and hot snare polypectomy x 2. Surgeon: Brady Paulson MD Was an Seasonal Sales Associate used for this Procedure?: No Estimated blood loss (mL): 2.0 Pathology: other (A. Cecal polyp B. Ascending colon C. Hepatic flexure polyp D. Colon at 60cm E. Colon at 30cm F. Rectum) Condition: stable Disposition: PACU
[2024-02-23 15:40] VITALS: BP 138/70; PULSE 70; RESP 18; TEMP 36.6; O2SAT 94
--- NOTE | 2024-02-24 01:43 | OP_ITS ---
DATE OF SERVICE: 02/23/2024 SURGEON: Brady Paulson MD INDICATIONS: The patient presents for evaluation of change in bowel habits with associated diarrhea and abnormal CT scan of colon. Full consent has been obtained from him for this, including risks of bleeding and perforation. PREOPERATIVE DIAGNOSIS: POSTOPERATIVE DIAGNOSIS: PROCEDURE PERFORMED: Colonoscopy to the cecum with hot snare polypectomy x2, and biopsies. ESTIMATED BLOOD LOSS: COMPLICATIONS: ANESTHESIA: Monitored anesthesia care. ASSISTANTS: SPECIMENS: PREOPERATIVE DIAGNOSES: Change in bowel habits and abnormal CT scan of colon. POSTOPERATIVE DIAGNOSES: Change in bowel habits, abnormal CT scan of colon, left-sided colitis, colon polyps, diverticulosis, and internal hemorrhoids. DESCRIPTION OF PROCEDURE: The patient was placed in the left lateral decubitus position. The digital rectal exam revealed no abnormalities. The Olympus video pediatric colonoscope was then entered into the rectum and advanced to the cecum with the assistance of abdominal wall pressure. Once in the cecum, I did identify a normal-appearing cecal pouch other than an approximately 10 mm polyp, which was removed by hot snare polypectomy and recovered by suction. The polypectomy site appeared clean, without any sign of residual polyp nor bleeding. The remainder of the cecum including the appendiceal orifice appeared normal. The ileocecal valve appeared normal. The scope was then slowly withdrawn assessing all mucosal surfaces carefully. Preparation was excellent. In the area of the hepatic flexure, was an approximately 12 mm polyp, which was removed by hot snare polypectomy and recovered by suction. The polypectomy site appeared clean, without any sign of residual polyp nor bleeding. The ascending colon and transverse colon mucosa appeared normal. However, beginning at approximately 60 cm and then progressing all the way to the rectum was what appeared to be a fairly chronic-appearing, but somewhat active colitis with some friability, small erosions, edema, and a lot of mucus. I did obtain biopsies at 60 cm, 30 cm, and in the rectum. I did obtain biopsies from normal-appearing mucosa in the ascending colon as well. There was a mild amount of sigmoid diverticulosis. In the rectum, scope was retroflexed, visualizing internal hemorrhoids as well. The scope was straightened and withdrawn from the patient. He tolerated the procedure well and was returned to the recovery area in stable condition. IMPRESSION: 1. Left-sided colitis, probable ulcerative colitis. 2. Colon polyps. 3. Diverticulosis. 4. Internal hemorrhoids. PLAN: The results of the biopsies will be checked. Given his age and these findings, I do not think he would need any further screening colonoscopies. He was advised not to use any aspirin or NSAIDs on a long-term basis, although I did advise him to speak with his primary care physician regarding staying off aspirin long-term as he has been on a daily up until a week prior to the procedure. However, he has no history of heart disease or stroke and does not have any stents in place, and therefore, I advised him that he most likely will be able to stay off it if it is alright with his primary care physician. I shall start him on a mesalamine medication and will send a prescription to his Pharmacy. I did advise him to use some [id number] Imodium as needed as well. He will be given an appointment to see me for followup in the office, but I did advise him to call me before that if he has any problems or questions I can be of assistance with. This has all been discussed with the patient and his sister, Natty in detail. MD LUCAS Batres/MARIELA / [phone] MTDD
== END 2024-02-23 15:53 | disposition home or self-care (01) ==
PROVIDERS: PCP Internal Medicine; Visit Provider Internal Medicine
PROC: 0DJD8ZZ Inspection of Lower Intestinal Tract, Via Natural or Artificial Opening Endoscopic (ICD-10-PCS; CPT 45378; principal; 2024-02-23 14:00)
DX: D12.0 Benign neoplasm of cecum (principal); D12.3 Benign neoplasm of transverse colon; K62.89 Other specified diseases of anus and rectum; K52.9 Noninfective gastroenteritis and colitis, unspecified; K57.30 Diverticulosis of large intestine without perforation or abscess without bleeding; K64.8 Other hemorrhoids; R19.4 Change in bowel habit; Z86.0101 Personal history of adenomatous and serrated colon polyps; Z80.0 Family history of malignant neoplasm of digestive organs; I10 Essential (primary) hypertension; Z79.899 Other long term (current) drug therapy; Z79.82 Long term (current) use of aspirin
CPT/HCPCS: 45385; 45380; 88305; J2704

== ENCOUNTER 2024-04-11 10:12 | Outpatient (REF) | payer MEDICARE, SELFPAY ==
[2024-04-11 13:09] LABS: MANUAL DIFF FLAG NO
[2024-04-11 13:15] LABS: Basophils Absolute Auto 0.1 X10*3/uL (0.0-0.2); Basophils Percent Auto 0.7 % (0-2); Hematocrit 43.9 % (42.0-52.0); Hemoglobin 14.5 g/dl (14.0-18.0); Imm Gran Abs Auto 0.02 X10*3/uL (0.00-0.03); Imm Gran Pct Auto 0.3 % (0.0-0.4); Lymphocytes Absolute Auto 1.4 X10*3/uL (1.2-4.9); Lymphocytes Percent Auto 20.7 % (20-40); Mean Corpuscular Hemoglobin 27.2 pg (27.0-33.0); Mean Corpuscular Volume 82.2 fL (80.0-98.0); Mean Platelet Volume 9.9 fL (9.4-12.4); Monocytes Absolute Auto 0.6 X10*3/uL (0.1-1.2); Monocytes Percent Auto 8.2 % (2-11); Neutrophils Absolute Auto 4.9 x10*3/uL (2.0-8.3); Neutrophils Percent Auto 70.1 % (45-73); Platelet Count 192 X10*3/uL (160-400); Red Blood Count 5.34 X10*6/uL (4.60-5.80); Red Cell Distribution Width 15.7 % (11.0-16.0)
[2024-04-11 13:58] LABS: Alanine Aminotransferase 6 U/L (0-40); Albumin Level 3.6 g/dL (3.5-5.0); Alkaline Phosphatase 84 U/L (39-117); Anion Gap 10 (12-20); Aspartate Amino Transferase 18 U/L (5-37); Bilirubin Total 0.5 mg/dL (0.0-1.0); Blood Urea Nitrogen 18 mg/dL (9-16); Calcium 9.1 mg/dL (8.4-10.2); Carbon Dioxide 28 mmol/L (22-29); Chloride 107 mmol/L (96-108); Estimated Glomerular Filt Rate > 60; Glucose Random 85 mg/dL (60-115); Potassium 4.1 mmol/L (3.3-5.1); Sodium 141 mmol/L (135-145); Total Protein 7.1 g/dL (6.5-8.0)
== END 2024-04-11 10:13 | disposition home or self-care (01) ==
LOC: HO.HMGCLDS 10:12
PROVIDERS: PCP Internal Medicine; Visit Provider Internal Medicine
DX: I10 Essential (primary) hypertension (principal); K21.9 Gastro-esophageal reflux disease without esophagitis; N40.0 Benign prostatic hyperplasia without lower urinary tract symptoms
CPT/HCPCS: 36415; 80053; 85025

== ENCOUNTER 2024-05-08 11:47 | Outpatient (REF) | payer MEDICARE, SELFPAY ==
--- NOTE | ~2024-05-08 | XR_ITS ---
EXAMINATION: XR CHEST CLINICAL INFORMATION: COUGH, COMPARISON: None available. TECHNIQUE: 2 views of the chest were obtained. FINDINGS: The lungs are well-inflated and clear acute process. The heart size and pulmonary vascularity is normal. There is mild dextroscoliosis of dorsolumbar spine. No lytic or sclerotic process seen. XR/XR chest 2V IMPRESSION: Well-inflated lungs without acute process. Electronically signed by: Dillon Martínez MD 05/08/2024 02:53 PM EST
== END 2024-05-08 11:48 | disposition home or self-care (01) ==
LOC: HO.XRAY 11:47
PROVIDERS: PCP Internal Medicine; Visit Provider Internal Medicine
DX: R05.9 Cough, unspecified (principal)
CPT/HCPCS: 71046

== ENCOUNTER → 2024-05-08 11:58 | Outpatient (BNV) | payer MEDICARE, SELFPAY | PROVIDERS: PCP Internal Medicine; Visit Provider Radiology Diagnostic Radiology | DX: R07.9 Chest pain, unspecified (principal) | CPT/HCPCS: 71046 ==

== ENCOUNTER 2024-10-10 09:15 | Outpatient (AMB) | payer MEDICARE, SELFPAY ==
--- NOTE | 2024-10-10 09:28 | A.OFFPC_ITS ---
Vital Signs 10/10/24 09:32 Height 6 ft Weight 107.048 kg BMI 32.0 BP 120/60 Respiration 16 Pulse 61 Pulse Source Pulse Oximeter Temp 97.3 F Temp Source Temporal Artery Scan Pulse Oximetry (%) 99 Oxygen Delivery Method Room Air Intake Visit Reasons: Routine Night Guard Required: No Accompanied by: Self / Same As Patient Allergies amoxicillin [AMOXICILLIN] Allergy (Severe, Verified 10/10/24 09:29) ANAPHYLAXIS Penicillins [PENICILLINS] Allergy (Intermediate, Verified 10/10/24 09:29) RASH Sulfa (Sulfonamide Antibiotics) [SULFA (SULFONAMIDE ANTIBIOTICS)] Allergy (Mild, Verified 10/10/24 09:29) UNKNOWN A CHILD penicillin V Allergy (Unknown, Verified 10/10/24:) Hives HPI HPI Comments History of Present Illness Details 84-year-old male with history of BPH, po st herpetic neuralgia, hypertension presents to the office today for management of chronic conditions and to establish care. Hypertension-blood pressure in the office today 120/60. Compliant with a mlodipine 5 mg daily BPH-following with [facility]. Continues to experience increased urinary frequency but is not overly bothered by this. Continues on doxazosin and finasteride. Post herpetic neuralgia-history of herpes zoster along the right chest to sternum. Primarily bothersome at night for which he will take gabapentin 100 mg with good relief. Has not yet received Shingrix vaccine Hearing difficulties-reports sudden onset deafness in the right ear years ago. Followed with intratympanic membrane injections without effect. He also has decreased hearing in the left ear. He is not interested in hearing aids. Vertigo-sudden onset hearing loss and vertigo, history sounds consistent with Menieres disease. 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 Will use a cane to ambulate. ROS: General: No fevers, malaise, unintentional weight loss HEENT: see hpi Cardiovascular: No chest pain, palpitations, or leg edema Respiratory: No shortness of breath, wheezing, cough Neuro: No headaches, weakness, paresthesias. see hpi Skin: No rashes or lesions EXAM: Constitutional - Awake and Alert, No apparent distress Eyes - PERRL Cardiovascular - S1S2, RRR, No edema Respiratory - Normal lung expansion, Normal respiratory effort, No respiratory distress, CTA bilaterally Extremities - no calf tenderness bilaterally, no swelling Skin - Warm/Dry Neurological - Alert & oriented x3 Psychological - Appropriate affect HCP- daughterSonja Reviewed MOLST and given copy to complete at home after discussion with family. Will return once complete for signature [facility] Medical History (Updated 10/10/24 @ 11:30 by AME Miner) Postherpetic neuralgia Hearing loss in right ear Hiatal hernia BPH (benign prostatic hyperplasia) Diverticulosis HTN (hypertension) Vertigo Hip replacement planned Anxiety GERD (gastroesophageal reflux disease) Surgical History Hx of bilateral hip replacements Hx of tonsillectomy History of left knee replacement Hx of right knee surgery Hx of appendectomy H/O colonoscopy Total knee replacement status Social History Patient Tobacco Use Status: Former Tobacco user Questionnaire PHQ-9 Over the last 2 weeks, how often have you been bothered by any of the following problems? 1. Little interest or pleasure in doing things: not at all 2. Feeling down, depressed, or hopeless: not at all 3. Trouble falling or staying asleep, or sleeping too much: not at all 4. Feeling tired or having little energy: not at all 5. Poor appetite or overeating: not at all 6. Feeling bad about yourself - or that you are a failure or have let yourself or your family down: not at all 7. Trouble concentrating on things, such as reading the newspaper or watching television: not at all 8. Moving or speaking so slowly that other people could have noticed. Or the opposite - being so fidgety or restless that you have been moving around a lot more than usual: not at all 9. Thoughts that you would be better off or of hurting yourself in some way: not at all Total score: 0 Source: Developed by Drs. Brady Hill, Otilia Scott, Darek Her and colleagues, with an educational neema from [employer]. Thrive Questionnaire Date Thrive assessed: 10/10/24 I am a: Patient What is your living situation today?: I have a steady place to live Within the past 12 months, did the food you bought not last and you didn't have the money to get more?: Never true Within the past 12 months, did you worry whether your food would run out before you got money to buy more?: Never true Do you have trouble paying for medicines?: No Do you have trouble getting transportation to medical appointments?: No Do you have trouble paying your heating and electricity bill?: No Do you have trouble taking care of your child, family member or friend?: No Do you have trouble with day-to-day activities such as bathing, preparing meals, shopping, managing finances, etc.?: No Are you currently unemployed and looking for a job?: No Are you interested in more education?: No Please select the resources that you would like help with: None THRIVE Score: 0 AIDEE-7 AMB Questionnaire AIDEE-7 Date AIDEE - 7 assessed: 10/10/24 Feeling nervous, anxious, or on edge: 0 = Not at all Not being able to stop or control worryin = Not at all Worrying too much about different things: 0 = Not at all Trouble relaxin = Not at all Being so restless that it is hard to sit still: 0 = Not at all Becoming easily annoyed or irritable: 0 = Not at all Feeling afraid as if something awful might happen: 0 = Not at all Total AIDEE-7 score (0-4 normal; 5-9 mild; 10-14 moderate; 15-21 severe): 0 Source: Developed by Drs. Brady Hill, Otilia Scott, Darek Her and colleagues, with an educational neema from [employer]. Physical exam (Primary Care) Vital Signs: Last Vital Signs Temp 97.3 F 10/10/24 09:32 Pulse 61 10/10/24 09:32 Resp 16 10/10/24 09:32 BP 120/60 10/10/24 09:32 Pulse Ox 99 10/10/24 09:32 Oxygen Delivery Method Room Air 10/10/24 09:32 BMI result Body Mass Index 32.0 Tobacco/Smoking Status: Tobacco use Status Patient Tobacco Use Status Former Tobacco user 10/10/24 09:31 PHQ-9: PHQ-9 Score PHQ-9: Total score 0 10/10/24 11:05 Thrive Assessment: Date of Thrive Assessment Date Thrive assessed 10/10/24 10/10/24 10:52 Coding Level of Care Code New Pt Level 4 (55234) Complex EM visit Add On G2211 Diagnoses HTN (hypertension) I10 BPH (benign prostatic hyperplasia) N40.0 Postherpetic neuralgia B02.29 Assessment & Plan Assessment & Plan (1) HTN (hypertension): Code(s): I10 - Essential (primary) hypertension Category: Medical Plan: Controlled. Continue amlodipine 5mg daily. Low sodium diet (2) BPH (benign prostatic hyperplasia): Code(s): N40.0 - Benign prostatic hyperplasia without lower urinary tract symptoms Category: Medical Plan: Continues wtih LUTS but not overly bothersome. Continue following with [facility] and take doxazosin and finasteride as prescribed (3) Postherpetic neuralgia: Code(s): B02.29 - Other postherpetic nervous system involvement Category: Medical Plan: Stable. Continue gabapentin prn. Recommend shingles vaccine Plan Follow up in the office in 3 months. Labs to be completed following visit. Continue medications as prescribed Orders: Orders Lipid Panel Today I10 - Essential (primary) hypertension, N40.0 - Benign prostatic hyperplasia without lower urinary tract symptoms, Z13.220 - Encounter for screening for lipoid disorders Basic Metabolic Panel Today I10 - Essential (primary) hypertension, N40.0 - Benign prostatic hyperplasia without lower urinary tract symptoms, Z13.220 - Encounter for screening for lipoid disorders Complete Blood Count Auto Diff Today I10 - Essential (primary) hypertension, N40.0 - Benign prostatic hyperplasia without lower urinary tract symptoms, Z13.220 - Encounter for screening for lipoid disorders Medications: New gabapentin 100 mg PO DAILY PRN 90 caps 1RF Pain amlodipine 5 mg PO DAILY 90 tabs 1RF doxazosin 2 mg PO DAILY 90 tabs 1RF
[2024-10-10 09:32] VITALS: BP 120/60; PULSE 61; RESP 16; TEMP 36.3; O2SAT 99; BMI 32.0
--- OUTSIDE RECORDS SUMMARY | 2024-10-10 09:41 | XMS_ITS ---
Author Organization [facility] Address [address] [place] [address] Care Team Providers Care Operations Agent Name Role Phone Lam Reid MD Primary Care Provider Brady Cortes [phone] REASON FOR VISIT bloody diarrhea Encounters Encounter Location Date Provider Diagnosis [facility] [address] [place] [address] [address] [place] [address] 03/01/2024 Brady Paulson Plan Of Treatment Next Appt Details Provider Name:Brady Paulson , 01/15/2025 09:10:00 AM, [address] [facility], [address], [place], [address], Progress Notes * ART BOWMAN RDOB: [birth year] (83 yo M)Acc No.[id number]:03/01/2024 Patient:?ART BOWMAN :1940???Age:83 Y???Sex:Male Address:[address] [place] [address] [facility] [place] [address] * true * Date:? Generated for Printi ng/Faxing/eTransmitting on:?10/10/2024 09:40 AM EDT
== END 2024-10-10 10:14 | disposition home or self-care (01) ==
LOC: HO.HMCHD 09:18
PROVIDERS: PCP Internal Medicine; Visit Provider Physician Assistant
DX: I10 Essential (primary) hypertension (principal); N40.0 Benign prostatic hyperplasia without lower urinary tract symptoms; B02.29 Other postherpetic nervous system involvement

== ENCOUNTER → 2024-10-10 09:15 | Outpatient (BNVA) | payer MEDICARE, SELFPAY | PROVIDERS: PCP Internal Medicine; Visit Provider Physician Assistant | DX: Z13.89 Encounter for screening for other disorder (principal) | CPT/HCPCS: 99202 ==

== ENCOUNTER 2024-10-10 10:17 | Outpatient (REF) | payer MEDICARE, SELFPAY ==
[2024-10-10 12:21] LABS: MANUAL DIFF FLAG NO
[2024-10-10 12:38] LABS: Basophils Absolute Auto 0.1 X10*3/uL (0.0-0.2); Basophils Percent Auto 0.8 % (0-2); Eosinophils Absolute Auto 0.1 X10*3/uL (0.0-0.4); Eosinophils Percent Auto 2.2 % (0-4); Hematocrit 44.9 % (42.0-52.0); Hemoglobin 15.2 g/dl (14.0-18.0); Imm Gran Abs Auto 0.04 X10*3/uL (0.00-0.03); Imm Gran Pct Auto 0.6 % (0.0-0.4); Lymphocytes Absolute Auto 1.3 X10*3/uL (1.2-4.9); Lymphocytes Percent Auto 20.9 % (20-40); Mean Corpuscular HGB Conc 33.9 g/dl (31.0-36.0); Mean Corpuscular Hemoglobin 28.2 pg (27.0-33.0); Mean Corpuscular Volume 83.3 fL (80.0-98.0); Mean Platelet Volume 10.4 fL (9.4-12.4); Monocytes Absolute Auto 0.5 X10*3/uL (0.1-1.2); Neutrophils Absolute Auto 4.4 x10*3/uL (2.0-8.3); Neutrophils Percent Auto 68.5 % (45-73); Platelet Count 184 X10*3/uL (160-400); Red Blood Count 5.39 X10*6/uL (4.60-5.80); White Blood Count 6.4 X10*3/uL (4.8-10.8)
[2024-10-10 12:47] LABS: Anion Gap 13 (12-20); Blood Urea Nitrogen 21 mg/dL (9-16); Calcium 9.3 mg/dL (8.4-10.2); Carbon Dioxide 28 mmol/L (22-29); Chloride 105 mmol/L (96-108); Cholesterol 127 mg/dL (<200); Estimated Glomerular Filt Rate > 60; Glucose Random 91 mg/dL (60-115); HDL Cholesterol 42 mg/dL (>40); LDL Cholesterol Calculated 74 mg/dL (<100); Potassium 3.9 mmol/L (3.3-5.1); Sodium 142 mmol/L (135-145); Triglycerides 56 mg/dL (<150)
== END 2024-10-10 10:18 | disposition home or self-care (01) ==
LOC: HO.10HDL 10:17
PROVIDERS: Visit Provider Physician Assistant
DX: I10 Essential (primary) hypertension (principal); N40.0 Benign prostatic hyperplasia without lower urinary tract symptoms; B02.29 Other postherpetic nervous system involvement; Z79.899 Other long term (current) drug therapy; Z13.220 Encounter for screening for lipoid disorders
CPT/HCPCS: 36415; 80048; 80061; 85025; 96127; 99202

== ENCOUNTER 2024-12-15 08:48 | Emergency (ER) | payer MEDICARE, SELFPAY ==
--- NOTE | 2024-12-15 | ECG_ITS ---
Test Reason : SOB Blood Pressure : */* mmHG Vent. Rate : 77 BPM Atrial Rate : 77 BPM P-R Int : 150 ms QRS Dur : 86 ms QT Int : 368 ms P-R-T Axes : 38 -56 34 degrees QTcB Int : 416 ms Sinus rhythm with occasional Premature ventricular complexes Left axis deviation Possible Anterior infarct , age undetermined Abnormal ECG When compared with ECG of 19-Jun-2020 09:33, Premature ventricular complexes are now Present QRS axis Shifted left Referred By: Generic ED Physician Electronically Signed By: ERNESTO AVENDANO
--- NOTE | ~2024-12-15 | XR_ITS ---
CLINICAL HISTORY: sob, cough Chest radiographs, 2 views Comparison: CR/MO/SR - XR CHEST 2 VIEWS - 05/08/24 13:24 EST Findings: The heart is not enlarged. Mild aortic arch calcifications. Bilateral perihilar bronchovascular prominence. No focal consolidation or effusion. No pneumothorax. IMPRESSION: Bilateral perihilar bronchovascular prominence which can be seen with viral/atypical infection or pulmonary vascular congestion. No focal consolidation. This document has been electronically signed by: Carlin Monique DO on 12/15/2024 10:02:53
[2024-12-15 08:58] VITALS: BP 173/99; PULSE 66; RESP 22; TEMP 37.1; O2SAT 96; BMI 31.4
[2024-12-15 09:22] LABS: MANUAL DIFF FLAG NO
[2024-12-15 09:28] LABS: Hematocrit 40.0 % (42.0-52.0); Hemoglobin 13.7 g/dl (14.0-18.0); Imm Gran Abs Auto 0.01 X10*3/uL (0.00-0.03); Imm Gran Pct Auto 0.2 % (0.0-0.4); Lymphocytes Absolute Auto 0.5 X10*3/uL (1.2-4.9); Mean Corpuscular HGB Conc 34.3 g/dl (31.0-36.0); Mean Corpuscular Hemoglobin 27.8 pg (27.0-33.0); Mean Corpuscular Volume 81.3 fL (80.0-98.0); NRBC Abs Auto 0.000 X10*3/uL (0.0-0.012); NRBC Pct Auto 0.0 /100WBC (0.0-0.2); Platelet Count 123 X10*3/uL (160-400); Red Blood Count 4.92 X10*6/uL (4.60-5.80); White Blood Count 4.5 X10*3/uL (4.8-10.8)
[2024-12-15 09:39] LABS: Alanine Aminotransferase < 6 U/L (0-40); Albumin Level 3.5 g/dL (3.5-5.0); Alkaline Phosphatase 79 U/L (39-117); Anion Gap 12 (12-20); Aspartate Amino Transferase 16 U/L (5-37); Blood Urea Nitrogen 24 mg/dL (9-16); Calcium 8.2 mg/dL (8.4-10.2); Carbon Dioxide 22 mmol/L (22-29); Chloride 108 mmol/L (96-108); Creatinine Clr Calc Pharmacy 78.4; Estimated Glomerular Filt Rate > 60; Potassium 3.5 mmol/L (3.3-5.1); Sodium 138 mmol/L (135-145); Total Protein 6.6 g/dL (6.5-8.0)
--- NOTE | 2024-12-15 10:25 | ED_ITS ---
HPI - General Adult General Chief complaint: Upper Respiratory Symptoms Stated complaint: Fever, runny nose not feeling well Time Seen by Provider: 12/15/24 10:23 Source: patient, RN notes reviewed and old records reviewed Mode of arrival: ambulatory Limitations: no limitations History of Present Illness ED Provider: Gurjit HPI narrative: Patient is an 84-year-old male with history of HTN, BPH, postherpetic neuralgia, anxiety presenting to the ED with complaint of congestion and non-productive cough since . Fever of 100.7 and sweats last night. Took Tylenol at 6am today. Difficulty breathing through his nose due to congestion. States he has terrible sinuses. Denies has pain or palpitations. Denies abdominal pain, nausea, vomiting, diarrhea. MD complaint: congestion, cough, fever Onset (ago): day(s) Related Data Home Medications ?Medication ?Instructions ?Recorded ?Confirmed aspirin 81 mg tablet,delayed 81 mg PO DAILY 02/21/24 1 release finasteride 5 mg tablet 5 mg PO DAILY 02/21/2402/20 mesalamine 0.375 gram 1.5 g PO QAM 10/10/24 capsule,extended release 24 hr Previous Rx's ?Medication ?Instructions ?Recorded amlodipine 5 mg tablet 5 mg PO DAILY #90 tabs 10/10 gabapentin 100 mg capsule 100 mg PO DAILY PRN Pain #90 caps 10/10/24 omeprazole 40 mg capsule,delayed 40 mg PO DAILY #90 ca ps 10/11/24 release doxazosin 2 mg tablet 2 mg PO DAILY #90 tabs 10/29 Allergies Allergy/AdvReac Type Severity Reaction Status Date / Time amoxicillin (AMOXICILLIN) Allergy Severe ANAPHYLAXIS Verified 12/15/24 09:01 Penicillins (PENICILLINS) Allergy Intermediate RASH Verified 12/15/24 09:01 Sulfa (Sulfonamide Allergy Mild UNKNOWN Verified 12/15/24 09:01 Antibiotics) (SULFA A CHILD (SULFONAMIDE ANTIBIOTICS)) penicillin V Allergy Unknown Hives Verified 12/15/24 09:01 Review of Systems 2 Review of Systems: As per HPI Yes all other systems are reviewed and are negative Constitutional: Constitutional: Reports as per HPI [facility] Past Medical History Medical History (Updated 12/15/24 @ 11:51 by Margarita Cagle NP) Postherpetic neuralgia Hearing loss in right ear Hiatal hernia BPH (benign prostatic hyperplasia) Diverticulosis HTN (hypertension) Vertigo Hip replacement planned Anxiety GERD (gastroesophageal reflux disease) Surgical History (Updated 10/10/24 @ 15:53 by Elvi Sorensen) Hx of bilateral hip replacements Hx of tonsillectomy History of left knee replacement Hx of right knee surgery Hx of appendectomy H/O colonoscopy (~02/24/24) Total knee replacement status Social History Social History Patient Tobacco Use Status: Former Tobacco user Smoked in Last 30 Days: No Use of substances other than those prescribed or required for medical reasons: No Advance Directives: No Advance Directives Information Provided: Yes Physical Exam ED Vital Signs: Vital Signs - 24 hr 12/15/24 08:58 12/15/24 11:01 12/15/24 11:01 Temperature 98.8 F 98.2 F Pulse Rate 66 70 Respiratory Rate 22 H 14 Blood Pressure 173/99 H 138/67 Pulse Oximetry 96 98 98 Oxygen Delivery Method Room Air Room Air BMI result Body Mass Index 31.4 Vital signs have been reviewed and appear to be correct. Blood pressure normal. Heart rate normal. Respiratory rate normal. Temperature normal. Oxygen saturation normal. Const General: cooperative, healthy appearing and no acute distress Orientation/consciousness: oriented to person, oriented to place, oriented to time and patient oriented x3 Limitations: no limitations HENMT Head: Yes normocephalic and Yes atraumatic Ears: hearing grossly abnormal bilaterally ([place] at baseline), external ears normal and TM's normal bilaterally General nose exam: Normal external nose present, Normal nasal mucous membranes and turbinates present and Normal septum present Face and sinus: Yes sinuses nontender and Yes face symmetric Mouth: oropharynx normal and moist mucous membranes Throat: Yes uvula midline Eyes Pupils: Equal, round and reactive pupils present Neck Neck: Yes normal visual inspection and Yes supple Resp Effort & Inspection: normal respiratory effort and able to speak in complete sentences Auscultation: clear to auscultation bilaterally Cardio Rate: regular rate Rhythm: regular rhythm Heart sounds: S1 normal heart sound present and S2 normal heart sound present GI Palpation (GI): Soft to palpation and nontender Auscultation: normoactive bowel sounds General: Yes no CVA tenderness Back/Spine/Pelvis Back: no CVA tenderness Skin General skin exam: elasticity normal and turgor normal Neuro General: oriented to person, oriented to place, oriented to time, patient oriented x3, moves all extremities, no focal motor deficits and CN's II-XI intact bilaterally Cranial nerves: Yes Equal, round and reactive pupils present Cognition (Neuro): normal cognition Extrem General: Yes full ROM, Yes no pedal edema and Yes no calf tenderness Psych Mental Status: mental status grossly normal Affect: normal affect Thought process: Normal thought process present Medical Decision Making Medical Decision Making [facility] Narrative: Patient is an 84-year-old male with history of HTN, BPH, postherpetic neuralgia, anxiety presenting to the ED with complaint of congestion and non-productive cough since . On exam patient is awake, A+Ox3, VS WNL, afebrile, normal neurological exam without focal deficits, physical exam findings as above. Given reported symptoms and physical exam findings, initial differential includes but is not limited to viral illness, COVID, flu, RSV, bronchitis, pneumonia. Labs unremarkable. X-ray chest notable for no evidence of pneumonia. My interpretation is in agreement with the radiologist's interpretation. Viral serology positive for COVID. Results discussed with patient and all questions answered. Discussed that treatment is supportive care, Tylenol as needed for fever, adequate rest and adequate fluid intake, isolation. Follow up with PCP. Return precautions discussed with patient at bedside. Patient verbalized understanding of and agreement with plan. Differential Diagnosis Differential Diagnoses: The differential diagnosis associated with the presentation includes As per [facility] Admission/Observation Consideration of admission/observation: Escalation of care including admission/observation considered Patient would have been admitted to the hospital had their clinical presentation warranted hospital admission. Lab Data [facility] Lab Attestation statement: I reviewed the patient's lab results. As per [facility] 12/15/24 09:14 12/15/24 09:14 Labs: Lab Results 12/15/24 12/15/24 Range/Units 09:14 10:45 WBC 4.5 L (4.8-10.8) X10*3/uL RBC 4.92 (4.60-5.80) X10*6/uL Hgb 13.7 L (14.0-18.0) g/dl Hct 40.0 L (42.0-52.0) % MCV 81.3 (80.0-98.0) fL MCH 27.8 (27.0-33.0) pg MCHC 34.3 (31.0-36.0) g/dl RDW 13.9 (11.0-16.0) % Plt Count 123 L D (160-400) X10*3/uL MPV 10.3 (9.4-12.4) fL Immature Gran % (Auto) 0.2 (0.0-0.4) % Neut % (Auto) 75.8 H (45-73) % Lymph % (Auto) 11.9 L (20-40) % [place] % (Auto) 11.7 H (2-11) % Eos % (Auto) 0.0 (0-4) % Baso % (Auto) 0.4 (0-2) % Lymph # (Auto) 0.5 L (1.2-4.9) X10*3/uL [place] # (Auto) 0.5 (0.1-1.2) X10*3/uL Eos # (Auto) 0.0 (0.0-0.4) X10*3/uL Baso # (Auto) 0.0 (0.0-0.2) X10*3/uL Abs Immat Gran (auto) 0.01 (0.00-0.03) X10*3/uL Absolute Neuts (auto) 3.4 (2.0-8.3) x10*3/uL Absolute Nucleated RBC 0.000 (0.0-0.012) X10*3/uL Nucleated RBC % (auto) 0.0 (0.0-0.2) /100WBC Sodium 138 (135-145) mmol/L Potassium 3.5 (3.3-5.1) mmol/L Chloride 108 (96-108) mmol/L Carbon Dioxide 22 (22-29) mmol/L Anion Gap 12 (12-20) BUN 24 H (9-16) mg/dL Creatinine 0.91 (0.5-1.4) mg/dL Estim Creat Clear Calc 78.4 Estimated GFR > 60 Random Glucose 112 (60-115) mg/dL Calcium 8.2 L D (8.4-10.2) mg/dL Total Bilirubin 0.4 (0.0-1.0) mg/dL AST 16 (5-37) U/L ALT < 6 (0-40) U/L Alkaline Phosphatase 79 (39-117) U/L Total Protein 6.6 (6.5-8.0) g/dL Albumin 3.5 (3.5-5.0) g/dL Influenza Type A (PCR) NEGATIVE (Negative) Influenza Type B (PCR) NEGATIVE (Negative) RSV RNA Qual (PCR) NEGATIVE (Negative) SARS-CoV-2 RNA (RT-PCR) POSITIVE A (Negative) Independent Interpretation I performed an independent interpretation of an: Plain X-Ray Interpretation: No evidence of pneumonia on CXR Radiology Impression Discussion of test interpretation with radiology: I have reviewed the radiologist's reading. Radiologist Impression: IMPRESSION: Bilateral perihilar bronchovascular prominence which can be seen with viral/atypical infection or pulmonary vascular congestion. No focal consolidation. External Record Review External record reviewed: Inpatient record, Office record and Outpatient record Discharge Plan Discharge Clinical Impression: COVID-19 Patient Disposition: Home, Self-Care Instructions: COVID-19 (Coronavirus Disease 2019) (ED), COVID-19 and Chronic Health Conditions (ED), COVID-19: Slow the Coronavirus Spread (ED), Safely Care for Someone Who Has COVID-19 (ED), Social Distancing Guidelines for COVID-19 (ED) Additional Instructions: You were evaluated in the emergency department today for congestion, cough, fever. Your COVID test was resulted as positive. You should continue to isolate at home for another 3 days. You should continue to wear a mask for 5 days after that. Be sure to get plenty of rest, plenty of fluids. You can take 650 mg of Tylenol every 6 hours as needed for fever or discomfort. Return to the emergency department with worsening shortness of breath, chest pain, fever that does not improve with Tylenol or ibuprofen, persistent vomiting, or any other concerning symptoms. You should follow-up with your primary care provider. Prescriptions: No Action omeprazole 40 mg capsule,delayed release(DR/EC) 40 mg PO DAILY Qty: 90 0RF doxazosin 2 mg tablet 2 mg PO DAILY Qty: 90 1RF aspirin 81 mg Tablet,Delayed Release (Dr/Ec) 81 mg PO DAILY finasteride 5 mg tablet 5 mg PO DAILY mesalamine 0.375 gram capsule,extended release 24hr 1.5 g PO QAM gabapentin 100 mg capsule 100 mg PO DAILY PRN (Reason: Pain) Qty: 90 1RF amlodipine 5 mg tablet 5 mg PO DAILY Qty: 90 1RF Print Language: Danish
[2024-12-15 11:01] VITALS: BP 138/67; PULSE 70; RESP 14; TEMP 36.8; O2SAT 98
--- NOTE | 2024-12-15 11:07 | PC.NURSE ---
84 M presents to ED with runny nose, feeling weak, fever and chills x 2 days. A+OX4, calm, cooperative. Hard of hearing in R ear. Pt ambulates with cane. Pt denies any pain. RR even and unlabored, denies SOB and CP.
[2024-12-15 11:33] LABS: Resp Syncy Virus RNA Qual PCR NEGATIVE (Negative); SARS COV2 PCR INHOUSE POSITIVE (Negative)
[2024-12-15 12:13] VITALS: BP 124/65; PULSE 66; RESP 18; TEMP 36.8; O2SAT 98
[2024-12-15 12:38] VITALS: BP 124/65; PULSE 66; RESP 18; TEMP 36.8; O2SAT 98
== END 2024-12-15 12:39 | disposition home or self-care (01) ==
PROVIDERS: Registered Nurse Emergency; Emergency Provider Emergency Medicine Emergency Medical Services
DX: U07.1 COVID-19 (principal); R05.9 Cough, unspecified; R50.9 Fever, unspecified
CPT/HCPCS: 36415; 71046; 80053; 85025; 87637; 93005; 99283; 99285

== ENCOUNTER → 2024-12-15 09:11 | Outpatient (BNV) | payer MEDICARE, SELFPAY | PROVIDERS: Emergency Provider Emergency Medicine Emergency Medical Services; Visit Provider Internal Medicine | DX: I49.3 Ventricular premature depolarization (principal) | CPT/HCPCS: 93010 ==

== ENCOUNTER → 2024-12-15 09:15 | Outpatient (BNV) | payer MEDICARE, SELFPAY | PROVIDERS: Emergency Provider Emergency Medicine Emergency Medical Services; Visit Provider Radiology Diagnostic Radiology | DX: R50.9 Fever, unspecified (principal) | CPT/HCPCS: 71046 ==

== ENCOUNTER 2025-01-23 07:43 | Outpatient (AMB) | payer MEDICARE, SELFPAY ==
--- OUTSIDE RECORDS SUMMARY | 2024-02-23 09:40 | XMS_ITS ---
Author Organization [facility] Address [address] [place] [address] Care Team Providers Care Meat And Seafood Manager Name Role Phone GUILLERMINA ZIMMERMAN Primary Care Provider Brady Ching Unavailable [phone] REASON FOR VISIT fam hx colon ca, diarrhea, hx polyps abn ct scan colon Problems Problem Type SNOMED Code ICD Code Onset Dates Problem Status W/U Status Risk Notes Problem Diverticular disease of colon (116872213) Diverticulosis of large intestine without perforation or abscess without bleeding (K57.30) Active confirmed Encounters Encounter Location Date Provider Diagnosis [facility] Outpatient [address] [place] [address] [phone] 02/23/2024 Brady Paulson Colon polyps K63.5 ; Change in bowel habits R19.4 ; Other specified diseases of anus and rectum K62.89 ; Diverticulosis of large intestine without perforation or abscess without bleeding K57.30 ; Other hemorrhoids K64.8 and Abnormal colonoscopy R93.3 Assessments Encounter Date Diagnosis (ICD Code) Assessment Notes Treatment Notes Treatment Clinical Notes Section Notes 02/23/2024 Colon polyps (ICD-10 - K63.5) 02/23/2024 Change in bowel habits (ICD-10 - R19.4) 02/23/2024 Other specified diseases of anus and rectum (ICD-10 - K62.89) 02/23/2024 Diverticulosis of large intestine without perforation or abscess without bleeding (ICD-10 - K57.30) 02/23/2024 Other hemorrhoids (ICD-10 - K64.8) 02/23/2024 Abnormal colonoscopy (ICD-10 - R93.3) Plan Of Treatment Next Appt Details Provider Name:Brady Paulson , 01/16/2026 09:00:00 AM, [address] [place] [address], [address], [place], [address], Progress Notes * ART BOWMAN RDOB: [birth year] (84 yo M)Acc No.[id number]:02/23/2024 COLON WITH MAC Patient: ART FORD Provider: Jaswinder Paulson MD :1940 A ge:83 Y S ex:Male Date:02/23/2024 Address:[address] [place] [address], [id number] Pcp:GUILLERMINA ZIMMERMAN Subjective: * Chief Complaints: * 1 . Fam hx colon ca, diarrhea, hx polyps abn ct scan colon. * Medical History: Objective: * Vitals: Assessment: * Assessment: 1. C olon polyps - K63.5 (Primary) 2 . C hange in bowel habits - R19.4 3 . O ther specified diseases of anus and rectum - K62.89 4 . D iverticulosis of large intestine without perforation or abscess without bleeding - K57.30 5 . O ther hemorrhoids - K64.8 6 . A bnormal colonoscopy - R93.3 ? Plan: * Treatment: * Procedure Codes: 4 5385 LESION REMOVAL COLONOSCOPY, 86936 COLONOSCOPY AND BIOPSY, Modifiers: 59 , 0529F INTRVL 3+YRS PTS CLNSCP DOCD, 0528F RCMND FLW-UP 10 YRS DOCD, Modifiers: 1P * * The named appointment provid er may or may not be the originator of this progress note, and it is not deemed complete until electronically signed by the appointment provider. Sign off status: Pending * Provider: Jaswinder Paulson MD Date: 1 Generated for Joshua sibley/Jeff/Kangitting on: 0 01/23/2025 07:46 AM EDT
--- OUTSIDE RECORDS SUMMARY | 2025-01-15 05:10 | XMS_ITS ---
Author Organization [facility] Address [address] [place] [address] Care Team Providers Care Nutrition Services Manager Name Role Phone GUILLERMINA ZIMMERMAN Primary Care Provider Brady Ching Unavailable [phone] Allergies Allergen (clinical drug ingredient) Drug/Non Drug Allergy documented on EMR Reaction Allergy Type Onset Date Status amoxicillin Amoxicillin Unknown Drug Allergy Act william Sulfa Unknown Drug Allergy Active Penicillin Unknown Drug Allergy Active REASON FOR VISIT Patient presents today for colitis Medications Medication SIG (Take, Route, Frequency, Duration) Notes Start Date End Date Status amLODIPine Besylate 5 MG 1 tablet Orally Once a day Active Doxazosin Mesylate 2 MG 1 tablet Orally Once a day Active Gabapentin 100 MG 1 capsule Orally as needed Active Aspir-81 Not-Taking Cipro 500 MG 1 tablet Orally ever y 12 hrs Not-Taking Mesalamine ER 0.375 GM 4 capsules in the morning Orally Once a day for 30 days Active Omeprazole 40 MG 1 capsule Orally Onc e a day Active Finasteride 5 MG 1 tablet Orally Once a day Active Social History Tobacco Use: Social History Observation Description Date Details (start date - stop date) Never Smoker NA - NA Tobacco Control (Standard) Question Answer Notes Tobacco use: Nonsmoker AUDIT-C (Standard) Question Answer Notes Did you have a drink contain ing alcohol in the past year? Yes How often did you have a dri nk containing alcohol in the past year? Monthly or less (1 point) How many drinks did you have on a typical day when you were drinking in the past year? 1 or 2 drinks (0 point) How often did you have six o r more drinks on one occasion in the past year? Never (0 point) Points 1 Interpretation Negative Section Notes: Nonsmoker > 10 yrs; occsiona l alcohol Vital Signs Temperature 96.8 degrees Fahrenheit 01/16/20 25 Blood pressure systolic 001 mm Hg 01/16/20 25 Blood pressure diastolic 01 mm Hg 025 Height 72 in 01/15/2025 Weight 233.2 lbs 01/15/2025 BMI 31.62 kg/m2 01/15/2025 Encounters Encounter Location Date Provider Diagnosis [facility] [address] [place] [address] 01/15/2025 Brady Khurram Chronic left-sided ulcerative colitis K51.50 and Gastroesophageal reflux disease, esophagitis presence not specified K21.9 Assessments Encounter Date Diagnosis (ICD Code) Assessment Notes Treatment Notes Treatment Clinical Notes Section Notes 01/15/2025 Chronic left-sided ulcerative colitis (ICD-10 - K51.50) Continue the 4 Mesalamine every morning You can try some Imodium as needed for any looser or more frequent BM's .Overall, Aki appears quite well. He is not having any particularly new or worrisome GI complaints. His ulcerative colitis seems to be clinically stable based on his history. While he does have somewhat more frequent bowel movements than his previous baseline, he is not having any particular issues with diarrhea, bleeding, abdominal pain, nor mucus with his bowel movements. As such, I advised him to continue his daily regimen of the 4 mesalamine every morning. I did advise him that he could certainly try a little bit of Imodium in the morning if he is going out and is concerned about having bowel movements, but I told him to be careful not to become constipated. I did advise him to continue his daily 40 mg omeprazole as well as that does seem to be working well in regard to his known hiatal hernia and reflux. At this point I do not think he needs any diagnostic studies and I advised him to see me in 1 year for a follow-up visit. I did advise him to certainly call me in the interim if he has any problems or questions I can be of assistance with, or if he just needs refills on his medication. Aki was comfortable with this plan. Thank you again for allowing me to participate in Aki's care. I shall continue to keep you advised of his progress. 01/15/2025 Gastroesophageal reflux disease, esophagitis presence not specified (ICD-10 - K21.9) Continue the daily omeprazole for the reflux .Overall, Aki appears quite well. He is not having any particularly new or worrisome GI complaints. His ulcerative colitis seems to be clinically stable based on his history. While he does have somewhat more frequent bowel movements than his previous baseline, he is not having any particular issues with diarrhea, bleeding, abdominal pain, nor mucus with his bowel movements. As such, I advised him to continue his daily regimen of the 4 mesalamine every morning. I did advise him that he could certainly try a little bit of Imodium in the morning if he is going out and is concerned about having bowel movements, but I told him to be careful not to become constipated. I did advise him to continue his daily 40 mg omeprazole as well as that does seem to be working well in regard to his known hiatal hernia and reflux. At this point I do not think he needs any diagnostic studies and I advised him to see me in 1 year for a follow-up visit. I did advise him to certainly call me in the interim if he has any problems or questions I can be of assistance with, or if he just needs refills on his medication. Aki was comfortable with this plan. Thank you again for allowing me to participate in Aki's care. I shall continue to keep you advised of his progress. Plan Of Treatment Treatment Notes Assessment Notes Chronic left-sided ulcerative colitis Continue the 4 Mesalamine every morning You can try some Imodium as needed for any looser or more frequent BM's Gastroesophageal reflux dise ase, esophagitis presence not specified Continue the daily omeprazole for the reflux Next Appt Details Follow Up: 1 Year, Reason: Provider Name:Brady Paulson , 01/16/2026 09:00:00 AM, [address] [place] [address], Suite [facility], [place], [address], Progress Notes * AKI BOWMAN RDOB: [birth year] (84 yo M)Acc No.[id number]:01/15/2025 Progress Notes Patient: AKI FORD Provider: Jaswinder Paulson MD :1940 A ge:84 Y S ex:Male Date:01/15/2025 Address:[address] [place] [address], [id number] Pcp:GUILLERMINA ZIMMERMAN Subjective: * Chief Complaints: * 1 . Patient presents today for colitis. * HPI: i ncontinence: I saw Aki in follow-up today in regard to his underlying history of ulcerative colitis and gastroesophageal reflux. I last saw Aki in June at which time he was continuing to do well on his regimen of the mesalamine every morning and omeprazole in regard to the ulcerative colitis and reflux, respectively. He continues on the 4 mesalamine every morning and reports that his bowel movements have been fairly regular and comfortable. He describes about 3 or 4 formed stools daily without any particular urgency, mucus, diarrhea, or bleeding. He does describe occasional days of more frequent bowel movements, but again without any significant urgency nor diarrhea.He denies abdominal pain, jaundice, nor unintentional weight loss. He does describe occasional symptoms of reflux with some belching which promptly resolve. He denies any dysphagia, anorexia, early satiety, nausea, nor vomiting. Overall he continues to feel much better than he did prior to the diagnosis of his ulcerative colitis last year at which point he was having a lot of diarrhea and mucus with his bowel movements. Laboratories in December revealed a hemoglobin of 13.7 with a normal MCV, normal electrolytes, BUN 24, creatinine 0.9, and a normal liver profile. 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 He responded well to 1.5 g of mesalamine ER at that time, COVID Summer 2024. * Surgical History: R ight knee surgery , Appendectomy , Left knee replacement 03/16/2010, Tonsillectomy , Right hip replacement in approx. 2016 , Left hip replacement , vertigo . * Hospitalization/Major Diagno stic Procedure: D enies Past Hospitalization. * Family History: F ather: , Had colon cancer at age 69, diagnosed with Colon cancer. M other: . No family history of liver cancer. Father had colon cancer. * Social History: T obacco Use: T obacco Control (Standard) T obacco use: N onsmoker. D rugs/Alcohol: A lcohol Screen P oints: 1, Interpretation: Negative. M iscellaneous: M arital status: 2020. Occupation: Retired school curriculum developer. D rug/Alcohol: A DIANA-C (Standard) D id you have a drink containing alcohol in the past year? Y es,?How often did you have a drink containing alcohol in the past year? M onthly or less (1 point), H ow many drinks did you have on a typical day when you were drinking in the past year? 1 or 2 drinks (0 point), H ow often did you have six or more drinks on one occasion in the past year? N ever (0 point), P oints 1 , I nterpretation N egative. N onsmoker > 10 yrs; occsional alcohol. * Medications: T aking Gabapentin 100 MG Capsule 1 capsule Orally as needed , Taking amLODIPine Besylate 5 MG Tablet 1 tablet Orally Once a day , Taking Doxazosin Mesylate 2 MG Tablet 1 tablet Orally Once a day , Taking Omeprazole 40 MG Capsule Delayed Release 1 capsule Orally Once a day , Taking Finasteride 5 MG Tablet 1 tablet Orally Once a day , Taking Mesalamine ER 0.375 GM Capsule Extended Release 24 Hour 4 capsules in the morning Orally Once a day , Not-Taking/PRN Cipro 500 MG Tablet 1 tablet Orally every 12 hrs , Not-Taking/PRN Aspir-81 , Medication List reviewed and reconciled with the patient * Allergies: S ulfa, Penicillin, Amoxicillin. Objective: * Vitals: W t:233.2lbs, Ht: 72 in, BMI:31.62Index, BP:001/01mm Hg, Temp:96.8, Wt-k.78. * Examination: G eneral Examination: GENERAL APPEARANCE: p leasant, well nourished, well developed, in no acute distress. EYES: s clera non-icteric. ORAL CAVITY: m ucosa moist. NECK/THYROID: n o cervical lymphadenopathy, neck supple.? SKIN: n onjaundiced, no spider angiomata. HEART: S 1, S2 normal. LUNGS: c lear to auscultation bilaterally. ABDOMEN: n ormal bowel sounds, no guarding or rigidity, no guarding or rigidity, no masses palpable, soft, nontender, nondistended. NEUROLOGIC: a lert and oriented. Assessment: * Assessment: 1. C hronic left-sided ulcerative colitis - K51.50 (Primary) 2 . G astroesophageal reflux disease, esophagitis presence not specified - K21.9 .Overall, Aki appears tai te well. He is not having any particularly new or worrisome GI complaints. His ulcerative colitis seems to be clinically stable based on his history. While he does have somewhat more frequent bowel movements than his previous baseline, he is not having any particular issues with diarrhea, bleeding, abdominal pain, nor mucus with his bowel movements. As such, I advised him to continue his daily regimen of the 4 mesalamine every morning. I did advise him that he could certainly try a little bit of Imodium in the morning if he is going out and is concerned about having bowel movements, but I told him to be careful not to become constipated. I did advise him to continue his daily 40 mg omeprazole as well as that does seem to be working well in regard to his known hiatal hernia and reflux. At this point I do not think he needs any diagnostic studies and I advised him to see me in 1 year for a follow-up visit. I did advise him to certainly call me in the interim if he has any problems or questions I can be of assistance with, or if he just needs refills on his medication. Aki was comfortable with this plan. Thank you again for allowing me to participate in Aki's care. I shall continue to keep you advised of his progress. Plan: * Treatment: 2. G astroesophageal reflux disease, esophagitis presence not specified Notes: Continue the daily omeprazole for the reflux * Procedure Codes: 1 036F TOBACCO NON-USER, G8785 BP SCR NOT PRFRM REC REASON NOS * Preventive Medicine: Counseling: C are goal follow-up plan: A marzena Normal BMI Follow-up G iving encouragement to exercise. Screenings: F all Risk Screening F all Risk Assessment: N o falls in the past year, S creening: N o falls in the past year, P sammy of Care: N ot documented, no reason specified. * Follow Up: 1 Year * * The named appointment provid er may or may not be the originator of this progress note, and it is not deemed complete until electronically signed by the appointment provider. Sign off status: Pending * Provider: Jaswinder Paulson MD Date: 0 01/15/2025 Generated for Joshua sibley/Jeff/Kangitting on: 0 01/23/2025 07:46 AM EDT History and Physical Notes * HPI (History of Present Illness) Category Sub-Category Detail Notes Category Not es incontinence I saw Aki in follow-up today in regard to his underlying history of ulcerative colitis and gastroesophageal reflux. I last saw Aki in June at which time he was continuing to do well on his regimen of the mesalamine every morning and omeprazole in regard to the ulcerative colitis and reflux, respectively. He continues on the 4 mesalamine every morning and reports that his bowel movements have been fairly regular and comfortable. He describes about 3 or 4 formed stools daily without any particular urgency, mucus, diarrhea, or bleeding. He does describe occasional days of more frequent bowel movements, but again without any significant urgency nor diarrhea.He denies abdominal pain, jaundice, nor unintentional weight loss. He does describe occasional symptoms of reflux with some belching which promptly resolve. He denies any dysphagia, anorexia, early satiety, nausea, nor vomiting. Overall he continues to feel much better than he did prior to the diagnosis of his ulcerative colitis last year at which point he was having a lot of diarrhea and mucus with his bowel movements. Laboratories in December revealed a hemoglobin of 13.7 with a normal MCV, normal electrolytes, BUN 24, creatinine 0.9, and a normal liver profile. Examination Category Sub-Category Detail Notes Category Not es General Examination GENERAL APPEARANCE: pleasant , well nourished, well developed, in no acute distress EYES: sclera non-icteric NECK/THYROID: no cervical lymphade nopathy, neck supple HEART: S1, S2 normal LUNGS: clear to auscultatio n bilaterally ABDOMEN: normal bowel sounds, no guarding or rigidity, no guarding or rigidity, no masses palpable, soft, nontender, nondistended NEUROLOGIC: alert and oriented SKIN: nonjaundiced, no spi tavia angiomata ORAL CAVITY: mucosa moist
--- OUTSIDE RECORDS SUMMARY | 2025-01-23 07:46 | XMS_ITS | Patient Health Record ---
Author Organization [facility] Address [address] [place] [address] Care Team Providers Care Special Agent In Charge Name Role Phone GUILLERMINA ZIMMERMAN Primary Care Provider Brady Ching [phone] Allergies Allergen (clinical drug ingredient) Drug/Non Drug Allergy documented on EMR Reaction Allergy Type Onset Date Status amoxicillin Amoxicillin Unknown Drug Allergy Act william Sulfa Unknown Drug Allergy Active Penicillin Unknown Drug Allergy Active Results Component Value Reference Range Notes Pathology Reviewed date:06/13/2024 02:43:18 PM Interpretation: Performing Lab:[facility], [address] [place] [phone] Notes/Report: Reason For Referral No Information Medications Medication SIG (Take, Route, Frequency, Duration) Notes Start Date End Date Status amLODIPine Besylate 5 MG 1 tablet Orally Once a day Active Doxazosin Mesylate 2 MG 1 tablet Orally Once a day Active Gabapentin 100 MG 1 capsule Orally as needed Active Aspir-81 Not-Taking Mesalamine ER 0.375 GM 4 capsules in the morning Orally Once a day for 30 days Active Cipro 500 MG 1 tablet Orally ever y 12 hrs Not-Taking Omeprazole 40 MG 1 capsule Orally Onc e a day Active Finasteride 5 MG 1 tablet Orally Once a day Active Immunizations Vaccine Route Administration Date Status Comme nts Influenza Unknown 03/06/2019 Administered Influenza Unknown 02/28/2024 Administered Social History Tobacco Use: Social History Observation [...] Nonsmoker > 10 yrs; occsiona l alcohol Nonsmoker > 10 yrs; occsiona l alcohol Nonsmoker > 10 yrs; occsiona l alcohol Nonsmoker > 10 yrs; occsiona l alcohol Nonsmoker > 10 yrs; occsiona l alcohol Problems Problem Type SNOMED Code ICD Code Onset Dates Problem Status W/U Status Risk Notes Problem 800123224 Encounter for screening for malignant neoplasm of colon (Z12.11) Active confirmed Problem Diarrhea (60629850) Diarrhea (R19.7) Active con firmed Problem Diverticular disease of colon (605553393) Diverticulosis of large intestine without perforation or abscess without bleeding (K57.30) Active confirmed Problem 801486730 Gastroesophageal reflux disease, esophagitis presence not specified (K21.9) Active confirmed Problem Computed tomography result abnormal (653225974) Abnormal CT scan, colon (R93.3) Active confirmed Problem 578498987 Long-term use of aspirin therapy (Z79.82) Active confirmed Problem 221857805 Hx of adenomatou s colonic polyps (Z86.010) Active confirmed Problem Chronic left-sided ulcerative colitis (862611317) Chronic left-sided ulcerative colitis (K51.50) Active confirmed Problem Family history of malignant neoplasm of gastrointestinal tract (263461072) Family history of colon cancer in father (Z80.0) Active confirmed Vital Signs Temperature 96.8 degrees Fahrenheit 01/15/2025 Blood pressure diastolic 01 mm Hg 01/15/2025 Height 72 in 01/15/2025 Blood pressure systolic 001 mm Hg 01/15/2025 Weight 233.2 lbs 01/15/2025 BMI 31.62 kg/m2 01/15/2025 Encounters Encounter Location Date Provider Diagnosis [facility] Outpatient [address] [place] [id number] 02/23/2024 Brady Khurram Colon polyps K63.5 ; Change in bowel habits R19.4 ; Other specified diseases of anus and rectum K62.89 ; Diverticulosis of large intestine without perforation or abscess without bleeding K57.30 ; Other hemorrhoids K64.8 and Abnormal colonoscopy R93.3 [facility] [address] [place] [phone] 01/15/2025 Brady Paulson Chronic left-sided ulcerative colitis K51.50 and Gastroesophageal reflux disease, esophagitis presence not specified K21.9 [facility] [address] [place] [phone] 01/26/2024 Brady Paulson Diarrhea R19.7 ; Abnormal CT scan, colon R93.3 ; Hx of adenomatous colonic polyps Z86.010 ; Encounter for screening for malignant neoplasm of colon Z12.11 and Family history of colon cancer in father Z80.0 [facility] [address] [place] [phone] 06/13/2024 Brady Paulson Chronic left-sided ulcerative colitis K51.50 [facility] [address] [place] [phone] 01/25/2024 Brady Paulson [facility] [address] [place] [phone] 02/17/2024 Brady Paulson [facility] [address] [place] [phone] 02/23/2024 Brady Paulson [facility] [address] [place] [phone] 03/01/2024 Brady Paulson Assessments Encounter Date Diagnosis (ICD Code) Assessment Notes Treatment Notes Treatment Clinical Notes Section Notes 02/23/2024 Change in bowel habits (ICD-10 - R19.4) 02/23/2024 Colon polyps (ICD-10 - K63.5) 01/15/2025 Chronic left-sided ulcerative colitis (ICD-10 - [...] to keep you advised of his progress. 01/26/2024 Diarrhea (ICD-10 - R19.7) Overall, Aki appears well and does seem to be clinically improving on the Cipro. However, his clinical history does not sound particularly consistent with diverticulitis given the lack of pain and the longevity of his symptoms. I do wonder if he had some type of inflammatory process causing the CT scan findings and his symptoms. He may have some resolving infectious colitis or inflammatory bowel disease. Given his resolving symptoms I will hold off on any stool specimens for the time being. However, I shall schedule him for a colonoscopy for further evaluation within the next several weeks. Full consent was obtained from him for this, including risks of bleeding and perforation. He was given the below instructions regarding adjustment of his medication for the procedure. The procedure will be done with monitored anesthesia care. We did review the rationale for the colonoscopy in regard to colorectal cancer prevention and/or early detection. I did advise him that if the symptoms of loose stools recur after the completion of Cipro he should call me and I will then want to order some stool specimens including a stool specimen for a GI panel, C. difficile, and a fecal calprotectin level. I also advised him to be sure to let me know if he develops any significant abdominal pain, vomiting, or bleeding prior to the colonoscopy. He does describe having had some laboratories over the summer and I will obtain a copy of those for my review. If need be, depending upon his clinical course, I will repeat laboratories including a sedimentation rate and C-reactive protein. Aki was comfortable with this plan. Thank you again for allowing me to participate in Aki's care. I shall continue to keep you advised of his progress. 01/26/[address] scan, colon (ICD-10 - R93.3) Stop aspirin for 1 week before the colonoscopy Overall, Aki appears well and does seem to be clinically improving on the Cipro. However, his clinical history does not sound particularly consistent with diverticulitis given the lack of pain and the longevity of his symptoms. I do wonder if he had some type of inflammatory process causing the CT scan findings and his symptoms. He may have some resolving infectious colitis or inflammatory bowel disease. Given his resolving symptoms I will hold off on any stool specimens for the time being. However, I shall schedule him for a colonoscopy for further evaluation within the next several weeks. Full consent was obtained from him for this, including risks of bleeding and perforation. He was given the below instructions regarding adjustment of his medication for the procedure. The procedure will be done with monitored anesthesia care. We did review the rationale for the colonoscopy in regard to colorectal cancer prevention and/or early detection. I did advise him that if the symptoms of loose stools recur after the completion of Cipro he should call me and I will then want to order some stool specimens including a stool specimen for a GI panel, C. difficile, and a fecal calprotectin level. I also advised him to be sure to let me know if he develops any significant abdominal pain, vomiting, or bleeding prior to the colonoscopy. He does describe having had some laboratories over the summer and I will obtain a copy of those for my review. If need be, depending upon his clinical course, I will repeat laboratories including a sedimentation rate and C-reactive protein. Aki was comfortable with this plan. Thank you again for allowing me to participate in Aki's care. I shall continue to keep you advised of his progress. 06/13/2024 Chronic left-sided ulcerative colitis (ICD-10 - K51.50) Continue the 4 mesalamine capsules every morning. Call me if you need refills or if the diarrhea gets bad again. Overall, Aki seems to be responding well to the mesalamine in regard to the diagnosis of his ulcerative colitis. We did review that diagnosis in detail and I advised him that he can have periodic flareups that might require medication such as prednisone. However at the present time he appears to be doing very well on his mesalamine and I advised him to continue that on a daily and long-term basis. His recent laboratories from April are reassuring as well. At this time I will plan to see him again in the Fall for a followup visit but advised him to call me prior to that if he is having any problems or questions I can be of assistance with. I did advise him to definitely call me if he has a flare of the colitis with increasing diarrhea, urgency, and/or bleeding. Aki was comfortable with this plan. Thank you again for allowing me to participate in Aki's care. I shall continue to keep you advised of his progress 02/23/2024 Other specified diseases of anus and rectum (ICD-10 - K62.89) 01/15/2025 Gastroesophageal reflux disease, esophagitis presence not [...] to keep you advised of his progress. 01/26/2024 Hx of adenomatous colonic polyps (ICD-10 - Z86.010) Overall, Aki appears well and does seem to be clinically improving on the Cipro. However, his clinical history does not sound particularly consistent with diverticulitis given the lack of pain and the longevity of his symptoms. I do wonder if he had some type of inflammatory process causing the CT scan findings and his symptoms. He may have some resolving infectious colitis or inflammatory bowel disease. Given his resolving symptoms I will hold off on any stool specimens for the time being. However, I shall schedule him for a colonoscopy for further evaluation within the next several weeks. Full consent was obtained from him for this, including risks of bleeding and perforation. He was given the below instructions regarding adjustment of his medication for the procedure. The procedure will be done with monitored anesthesia care. We did review the rationale for the colonoscopy in regard to colorectal cancer prevention and/or early detection. I did advise him that if the symptoms of loose stools recur after the completion of Cipro he should call me and I will then want to order some stool specimens including a stool specimen for a GI panel, C. difficile, and a fecal calprotectin level. I also advised him to be sure to let me know if he develops any significant abdominal pain, vomiting, or bleeding prior to the colonoscopy. He does describe having had some laboratories over the summer and I will obtain a copy of those for my review. If need be, depending upon his clinical course, I will repeat laboratories including a sedimentation rate and C-reactive protein. Aki was comfortable with this plan. Thank you again for allowing me to participate in Aki's care. I shall continue to keep you advised of his progress. 02/23/2024 Diverticulosis of large intestine without perforation or abscess without bleeding (ICD-10 - K57.30) 01/26/2024 Encounter for screening for malignant neoplasm of colon (ICD-10 - Z12.11) Overall, Aki appears well and does seem to be clinically improving on the Cipro. However, his clinical history does not sound particularly consistent with diverticulitis given the lack of pain and the longevity of his symptoms. I do wonder if he had some type of inflammatory process causing the CT scan findings and his symptoms. He may have some resolving infectious colitis or inflammatory bowel disease. Given his resolving symptoms I will hold off on any stool specimens for the time being. However, I shall schedule him for a colonoscopy for further evaluation within the next several weeks. Full consent was obtained from him for this, including risks of bleeding and perforation. He was given the below instructions regarding adjustment of his medication for the procedure. The procedure will be done with monitored anesthesia care. We did review the rationale for the colonoscopy in regard to colorectal cancer prevention and/or early detection. I did advise him that if the symptoms of loose stools recur after the completion of Cipro he should call me and I will then want to order some stool specimens including a stool specimen for a GI panel, C. difficile, and a fecal calprotectin level. I also advised him to be sure to let me know if he develops any significant abdominal pain, vomiting, or bleeding prior to the colonoscopy. He does describe having had some laboratories over the summer and I will obtain a copy of those for my review. If need be, depending upon his clinical course, I will repeat laboratories including a sedimentation rate and C-reactive protein. Aki was comfortable with this plan. Thank you again for allowing me to participate in Aki's care. I shall continue to keep you advised of his progress. 02/23/2024 Other hemorrhoids (ICD-10 - K64.8) 01/26/2024 Family history of colon cancer in father (ICD-10 - Z80.0) Overall, Aki appears well and does seem to be clinically improving on the Cipro. However, his clinical history does not sound particularly consistent with diverticulitis given the lack of pain and the longevity of his symptoms. I do wonder if he had some type of inflammatory process causing the CT scan findings and his symptoms. He may have some resolving infectious colitis or inflammatory bowel disease. Given his resolving symptoms I will hold off on any stool specimens for the time being. However, I shall schedule him for a colonoscopy for further evaluation within the next several weeks. Full consent was obtained from him for this, including risks of bleeding and perforation. He was given the below instructions regarding adjustment of his medication for the procedure. The procedure will be done with monitored anesthesia care. We did review the rationale for the colonoscopy in regard to colorectal cancer prevention and/or early detection. I did advise him that if the symptoms of loose stools recur after the completion of Cipro he should call me and I will then want to order some stool specimens including a stool specimen for a GI panel, C. difficile, and a fecal calprotectin level. I also advised him to be sure to let me know if he develops any significant abdominal pain, vomiting, or bleeding prior to the colonoscopy. He does describe having had some laboratories over the summer and I will obtain a copy of those for my review. If need be, depending upon his clinical course, I will repeat laboratories including a sedimentation rate and C-reactive protein. Aki was comfortable with this plan. Thank you again for allowing me to participate in Aki's care. I shall continue to keep you advised of his progress. 02/23/2024 Abnormal colonoscopy (ICD-10 - R93.3) Plan Of Treatment Future Test Test Name Order Date COLONOSCOPY 10/25/2013 COLONOSCOPY 03/06/2019 COLONOSCOPY 01/26/2024 Next Appt Details Provider Name:Brady Paulson , 01/16/2026 09:00:00 AM, [address] [place] [address], [address], [place], [address], Insurance Providers Payer Name Payer Address Payer Phone Subscriber Number Group Number Insured Name Patient Relationship to Insured Coverage Start Date Coverage End Date MEDICARE OF [place] [address] [place] [address] [id number] GRACIEAKI Self - patient is the insured [employer] ATT[employer] CLAIMS [address] [place] [address] [id number] GRACIEAKI RAMESH Self - patient is the insured Medical (General) History Medical History History ICD Code Colonoscopy in 2002 with only hyperplast ic polyps Screeninmg colonoscopy- -3 tubular adeno mas removed in 07/2008 HTN Denies [place],DM,CVA,Lung disease,renal dise ase Diverticulosis BPH GERD-although only occasiona l- moderate to large HH on UGI- normal gastric emptying study- has not had an upper endo Shingles with some ongoing pain-on Gabap entin Colonoscopy in 01/2014 with a single tubu ar adenoma Colonoscopy 03/2019 was nega tive for any adenomas, although his prep was limited for the procedure 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 He responded well to 1.5 g of mesalamine ER at that time COVID Summer 2024 Surgical History Surgery Date(Month/Year) vertigo Left hip replacement Right hip replacement in approx. 2015 Tonsillectomy Left knee replacement 03/16/2010 Appendectomy Right knee surgery
--- OUTSIDE RECORDS SUMMARY | 2025-01-23 07:46 | XMS_ITS | Clinical Summary ---
Author Organization [facility] Address [address] [facility] [address] [place] [id number] Phone Care Team Providers Care Supervisor Vegetable Farming Name Role Phone Lam Reid MD Primary Care Provider Allergies Active Allergy Reactions Criticality Noted Date Comments Penicillin G Sodium Rash Low 03/17/2016 Sulfacetamide Sodium Unknown 03/17/2016 Medications OMEPRAZOLE ORAL Take 20 mg by mouth daily. Active DOXAZOSIN MESYLATE (DOXAZOSIN ORAL) Take 2 mg by mouth daily. Active AMLODIPINE BESYLATE (AMLODIPINE ORAL) Take 5 mg by mouth every morning. Active clindamycin (CLEOCIN) 300 MG capsule Take 300 mg by mouth as directed. Dental prophylaxis 2 Active finasteride (PROSCAR) 5 mg tablet Take 5 mg by mouth every morning. 2 Active meclizine (ANTIVERT) 12.5 mg tablet Take 12.5 mg by mouth 3 (three) times a day as needed. Active fluticasone propionate (FLONASE) 50 mcg/actuation nasal spray 1 spray by Nasal route daily as needed for allergies. Active acetaminophen (TYLENOL) 500 MG tablet Take 2 tablets (1,000 mg total) by mouth every 8 (eight) hours. 2 Active Additional Information Patient taking differently:1,000 mg OralAs needed, Reported on 10/28/2021 celecoxib (CELEBREX) 200 MG capsule Take 1 capsule (200 mg total) by mouth 2 (two) times a day. 60 capsule 2 Active aspirin 81 mg chewable tablet Take 81 mg by mouth daily. Active Active Problems Problem Noted Date Diagnosed Date Encounter for preoperative s creening laboratory testing for COVID-19 virus 08/06/2021 S/P hip replacement, left 08/04/2021 Obesity, Class II, BMI 35-39.9 06/11/2021 Assessment & Plan (06/11/2021 7:54 PM EST): BMI 38.21. Preop examination 06/11/2021 Assessment & Plan (06/11/2021 8:22 PM EST): 80 [address] of Dr[address] Mcclure with planned left total hip replacement on 08/04/21. Risk factor scores at the surgical optimization clinic are as follows. ENRIQUEZ cardiovascular risk score is 0.8% risk of myocardial infarction or cardiac arrest, intraoperatively or up to 30 day post-operatively. STOP BANG score shows 4 points indicating a high risk of sleep apnea. Consider extended monitoring in PACU prior to discharge to an unmonitored floor. DASI score was 15.45 points, able to achieve at least 4.64 METS. NSQIP cardiovascular risk score was above average at 0.7% risk of cardiac complication, and RCRI score was 0.4% risk for cardiovascular event including myocardial infarction, pulmonary edema, arrhythmia, cardiac arrest or complete heart block. This reflects very low risk on the scale. Blood work from 05/22/21 shows a hemoglobin A1c of 5.4%. CBC and BMP are unremarkable with a creatinine of 1.00. EKG today shows sinus rhythm with premature atrial complexes with left axis deviation. There is no evidence of acute or prior ischemia. The patient can proceed to the intended procedure without further work-up. They should have standard DVT prophylaxis. The patient does have a penicillin allergy/devlops rash, consider vancomycin for antibiotic prophylaxis. The patient was instructed to hold all vitamins/supplements and naproxen sodium for 1 week before surgery. Given the patient's multiple medical conditions which warrant overnight monitoring, this patient is not a candidate for same day discharge after joint replacement surgery. The patient's pertinent medical conditions were reviewed in detail. This plan will be communicated to the Orthopedic surgeon and the PCP. BPH (benign prostatic hyperplasia) 06/11/2021 Assessment & Plan (06/11/2021 7:54 PM EST): Continue on finasteride 5 mg PO daily. BPPV (benign paroxysmal positional vertigo) 07/2021 Assessment & Plan (06/11/2021 7:56 PM EST): Continue on meclizine 12.5 mg PO TID as needed. HTN (hypertension) Assessment & Plan (06/11/2021 7:53 PM EST): Managed on amlodipine 5 mg PO daily and doxazosin mesylate 2 mg PO daily. Patient takes a baby aspirin daily for primary prevention of CAD. Instructed patient to continue to take amlodipine and doxazosin mesylate with a sip of water on the morning of surgery, but to hold the baby aspirin x 1 week pre-operatively to minimize bleeding risk. Reflux esophagitis Assessment & Plan (06/11/2021 7:55 PM EST): Continue on omeprazole 20 mg po daily. 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 Alcohol Use Standard Drinks/Week Comments Yes 0 (1 standard drink = 0.6 oz pur e alcohol) socially (one beer at events) Education Answer Date Recorded Are you interested in more education? Not on dasia e 09/03/2022 Are you concerned about learning? Not on file 09/03/2022 No 09/03/2022 No 09/03/2022 Digital Access Answer Date Recorded No 10/02/2022 No 10/02/2022 Reliable internet access at home? Not on file 10/02/2022 Device with a working camera? Not on file Sex and Gender Information Value Date Recorded Sex Assigned at Not on file Legal Sex Male 10:11 PM EDT Gender Identity Not on file Sexual Orientation Not on file Last Filed Vital Signs Vital Sign Reading Time Taken Comments Blood Pressure 138/84 08/17/2021 11:51 AM EDT Pulse 77 08/17/2021 11:51 AM EDT Temperature 36.7 C (98.1 F) 08/17/2021 11:51 AM EDT Respiratory Rate 18 08/12/2021 1:42 PM EDT Oxygen Saturation 99% 08/17/2021 11:51 AM EDT Inhaled Oxygen Concentration - - Weight 113.4 kg (250 lb) 08/04/2021 9:23 AM EDT Height 182.9 cm (6') 08/04/2021 9:23 AM EDT Body Mass Index 33.91 08/04/2021 9:23 AM EDT Plan of Treatment Health Maintenance Due Date Last Done Comments Adult Td,Tdap Booster 1942 BLOOD PRESSURE 1942 DEPRESSION SCREENING 1954 PNEUMOCOCCAL VACCINES (50+ years) (1 of 1 - PCV) 1992 ZOSTER VACCINES (1 of 2) 1992 RSV VACCINE (1 - 1-dose 75+ series) 2017 INFLUENZA VACCINE (#1) 2024 03/23/2021 COVID-19 VACCINE (3 - 2024-2 6 season) 2025 03/09/2021, 07/07/2020 HEPATITIS A VACCINES Aged Out No long er eligible based on patient's age to complete this topic HIB VACCINES Aged Out No longer eligi ble based on patient's age to complete this topic MENINGOCOCCAL VACCINES (ACWY) Aged Out No longer eligible based on patient's age to complete this topic MENINGOCOCCAL VACCINES (B) Aged Out N o longer eligible based on patient's age to complete this topic Medical Devices Implanted Type Area Shuttle Bus Driver Device Identifier Shelf Expiration Date Model / Serial / Lot Prosthetic Joint Prosthetic Joint Right: Hip Prosthetic Joint Prosthetic Joint Left: Knee Acetabular Liner 46mm Component Dual Mobility G7 - [id number] Implanted:Qty : 1 on 08/04/2021 by Abundio Mcclure MD at [facility] Left: Acetabulum ELIO / DIV OF [employer] 07/08/2030 [id number] / / [id number] Shell Hip Acetabular G7 [place] 4 Hole Ti Cementless 58mm - [id number] Implanted:Qty : 1 on 08/04/2021 by Abundio Mcclure MD at [facility] Left: Acetabulum ELIO / DIV OF [employer] [facility] 07/14/2029 [id number] / / [id number] Screw Hip 6.5x20mm G7 Low Profile Dome 16a - [id number] Implanted:Qty : 1 on 08/04/2021 by Abundio Mcclure MD at [facility] Left: Acetabulum [employer] 11/24/2030 [id number] / / [id number] Screw Bone 6.5x30mm Hip Dome G7 Acetabular Low Profile - [id number] Implanted:Qty : 1 on 08/04/2021 by Abundio Mcclure MD at [facility] Left: Acetabulum [employer] 03/22/2031 [id number] / / [id number] Hip Stem [id number] 130deg Echo Bi Metric Full Imal Profile Lateralized Alloy Porous Plasma Sprayed Titanium - [id number] Implanted:Qty : 1 on 08/04/2021 by Abundio Mcclure MD at [facility] Left: Acetabulum ELIO / DIV OF [employer] [facility] 08/12/2027 [id number] / / [id number] Hip 3mm 28 Modular C2a Biolox Delta Ceramic Minus - [id number] Implanted:Qty : 1 on 08/04/2021 by Abundio Mcclure MD at [facility] Left: Acetabulum [employer] 04/21/2031 [id number] / / [id number] Hip Liner [id number] Acetabular Dm Longevity - [id number] Implanted:Qty : 1 on 08/04/2021 by Abundio Mcclure MD at [facility] Left: Acetabulum ELIO / DIV OF [employer] 08/06/2024 [id number] / / [id number] Insurance MEDICARE PART A & B [employer] MEDEX SUPPLEMENT MEDICARE PART A & B [employer] MEDEX SUPPLEMENT MEDICARE PART A & B [facility] MEDEX SUPPLEMENT MEDICARE PART A & B [employer] MEDEX SUPPLEMENT MEDICARE PART A & B [employer] MEDEX SUPPLEMENT MEDICARE PART A & B [employer] MEDEX SUPPLEMENT MEDICARE PART A & B [employer] MEDEX SUPPLEMENT MEDICARE PART A & B [employer] MEDEX SUPPLEMENT MEDICARE PART A & B [employer] MEDEX SUPPLEMENT Advance Directives For more information, please contact: [phone] (9AM - 5PM May/[facility], Tuesday-Tuesday) Documents on File Type Date Recorded Patient Wireless Sales Associate Expl anation Healthcare Proxy 08/11/2021 1:56 PM * Full Code (Latest Code Status on File) Date Activated Date Inactivated Comments 08/04/2021 3:07 PM Question Answer Comments Code Status Confirmed With: Patient * Full Code Date Activated Date Inactivated Comments 08/04/2021 9:15 AM 08/04/2021 3:07 PM Question Answer Comments Code Status Confirmed With: Patient Care Teams Supervisor Vegetable Farming Relationship Specialty Start Date End Date Lam Reid MD [address] [place] [address] [place] [address] PCP - General 05/12/17 Additional Source Comments The information contained in this document represents components of the legal health record. It is not the complete legal health record.[facility]
--- OUTSIDE RECORDS SUMMARY | 2025-01-23 07:46 | XMS_ITS | Encounter Summary ---
Author Organization [facility] Address [address] [facility] [address] [place] [address] Phone Care Team Providers Care Water Pollution Control Inspector Name Role Phone Lam Reid MD Primary Care Provider Encounter Details Date Type Department Care Team (Late st Contact Info) Description 08/04/2021 Procedure Pass OR Admitting Dept - Virtual Department [address] [place] [address] Social History Tobacco Use Types Packs/Day Years Used Date Smoking Tobacco: Former Cigarettes Smokeless Tobacco: Never Comments:few years only, tai t in his 20's. Alcohol Use Standard Drinks/Week Comments Yes 0 (1 standard drink = 0.6 oz pur e alcohol) socially (one beer at events) Sex and Gender Information Value Date Recorded Sex Assigned at Not on file Legal Sex Male 10:11 PM EDT Gender Identity Not on file Sexual Orientation Not on file documented as of this encounter Plan of Treatment Not on file documented as of this encounter Visit Diagnoses Not on filedocumented in this encounter Care Teams Water Pollution Control Inspector Relationship Specialty Start Date End Date Lam Reid MD [address] [place] [address] [place] [address] PCP - General 05/12/17 documented as of this encounter Additional Source Comments The information contained in this document represents components of the legal health record. It is not the complete legal health record.[facility]
--- NOTE | 2025-01-23 07:47 | A.OFFPC_ITS ---
Vital Signs 01/23/25 07:55 Height 6 ft Weight 106.141 kg BMI 31.7 BP 104/70 Respiration 18 Pulse 58 Pulse Source Pulse Oximeter Temp 97.8 F Temp Source Temporal Artery Scan Pulse Oximetry (%) 99 Oxygen Delivery Method Room Air Intake Visit Reasons: 3 Month F/U Rooming House Keeper Required: No Accompanied by: Self / Same As Patient Allergies amoxicillin (AMOXICILLIN) Allergy (Severe, Verified 01/23/25 07:47) ANAPHYLAXIS Penicillins (PENICILLINS) Allergy (Intermediate, Verified 01/23/25 07:47) RASH Sulfa (Sulfonamide Antibiotics) (SULFA (SULFONAMIDE ANTIBIOTICS)) Allergy (Mild, Verified 01/23/25 07:47) UNKNOWN A CHILD penicillin V Allergy (Unknown, Verified 01/23/25 07:47) Hives Medication List - Last Reconciled 01/23/25 by AME Miner amlodipine 5 mg PO DAILY aspirin 81 mg PO DAILY doxazosin 2 mg PO DAILY doxycycline hyclate 100 mg PO BID finasteride 5 mg PO DAILY gabapentin 100 mg PO DAILY PRN mesalamine ER 1.5 grams PO QAM omeprazole 40 mg PO DAILY HPI HPI Comments History of Present Illness Details 84-year-old male with history of BPH, po st herpetic neuralgia, hypertension presents to the office today for management of chronic conditions. Hypertension-blood pressure in the office today 104/70. Compliant with amlodipine 5 mg daily BPH-following with [facility]. Continues to experience increased urinary frequency but is not overly bothered by this. Continues on doxazosin and finasteride. Post herpetic neuralgia-history of herpes zoster along the right chest to sternum. Primarily bothersome at night for which he will take gabapentin 100 mg with good relief. Has not yet received Shingrix vaccine Hearing difficulties-reports sudden onset deafness in the right ear years ago. Followed with intratympanic membrane injections without effect. He also has decreased hearing in the left ear. He is not interested in hearing aids. Vertigo-sudden onset hearing loss and vertigo, history sounds consistent with Menieres disease. 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 Will use a cane to ambulate. Chronic ulcerative colitis- follows with Dr. Paulson. Stable on mesalamine. Does have chronic diarrhea but denies any bloody stool. Seen last week by Gastroenterology Concerns: COVID-19- 12/2023- had chills, sweats, fever 101, weakness. Still with weakness in the ble. Not interested in physical therapy reports symptoms are improving Lesion R elbow noted 2 days ago. Has not been outside. Painful, not like shingles. No itch ROS: General: No fevers, malaise, unintentional weight loss HEENT: see hpi Cardiovascular: No chest pain, palpitations, or leg edema Respiratory: No shortness of breath, wheezing, cough GI: See HPI Neuro: No headaches, weakness, paresthesias. see hpi Skin: See HPI EXAM: Constitutional - Awake and Alert, No apparent distress Eyes - PERRL Cardiovascular - S1S2, RRR, No edema Respiratory - Normal lung expansion, Normal respiratory effort, No respiratory distress, CTA bilaterally Extremities - no calf tenderness bilaterally, no swelling Skin - Warm/Dry. 1cm area of erythema with 2 puncture bites centrally with scant purulent drainage with applied pressure. No significant surrounding erythema Neurological - Alert & oriented x3 Psychological - Appropriate affect HCP- daughter, Sonja [facility] Medical History (Updated 01/23/25 @ 08:12 by AME Miner) Ulcerative colitis Postherpetic neuralgia Hearing loss in right ear Hiatal hernia BPH (benign prostatic hyperplasia) Diverticulosis HTN (hypertension) Vertigo Hip replacement planned Anxiety GERD (gastroesophageal reflux disease) Surgical History (Updated 10/10/24 @ 15:53 by Elvi Sorensen) Hx of bilateral hip replacements Hx of tonsillectomy History of left knee replacement Hx of right knee surgery Hx of appendectomy H/O colonoscopy (~02/24/24) Total knee replacement status Social History Patient Tobacco Use Status: Former Tobacco user Questionnaire Thrive Questionnaire Date Thrive assessed: 10/10/24 AIDEE-7 AMB Questionnaire AIDEE-7 Date AIDEE - 7 assessed: 10/10/24 Source: Developed by Drs. Brady Hill, Otilia Scott, Darek Her and colleagues, with an educational neema from [employer]. Physical exam (Primary Care) Vital Signs: Last Vital Signs Temp 97.8 F 01/23/25 07:55 Pulse 58 01/23/25 07:55 Resp 18 01/23/25 07:55 BP 104/70 01/23/25 07:55 Pulse Ox 99 01/23/25 07:55 Oxygen Delivery Method Room Air 01/23/25 07:55 BMI result Body Mass Index 31.7 Tobacco/Smoking Status: Tobacco use Status Patient Tobacco Use Status Former Tobacco user 01/23/25 07:47 Thrive Assessment: Date of Thrive Assessment Date Thrive assessed 10/10/24 01/23/25 07:47 Coding Level of Care Code Est Pt Level 4 (29277) Complex EM visit Add On G2211 Diagnoses HTN (hypertension) I10 BPH (benign prostatic hyperplasia) N40.0 Postherpetic neuralgia B02.29 Ulcerative colitis K51.90 Insect bite W57.XXXA Assessment & Plan Assessment & Plan (1) HTN (hypertension): Code(s): I10 - Essential (primary) hypertension Category: Medical Plan: Controlled. Continue amlodipine 5mg daily. Low sodium diet (2) BPH (benign prostatic hyperplasia): Code(s): N40.0 - Benign prostatic hyperplasia without lower urinary tract symptoms Category: Medical Plan: Continues wtih LUTS but not overly bothersome. Continue following with [facility] and take doxazosin and finasteride as prescribed (3) Postherpetic neuralgia: Code(s): B02.29 - Other postherpetic nervous system involvement Category: Medical Plan: Stable. Continue gabapentin prn. Recommend shingles vaccine (4) Ulcerative colitis: Code(s): K51.90 - Ulcerative colitis, unspecified, without complications Category: Medical Plan: Stable. Continue following with Gastroenterology, reviewed most recent visit note. Continue mesalamine (5) Insect bite: Code(s): W57.XXXA - Bitten or stung by nonvenomous insect and other nonvenomous arthropods, initial encounter Category: Medical Plan: Suspect spider bite. There is some purulent drainage with pressure, however no surrounding erythema or warmth. Will give short course of doxycycline. Cover with Band-Aid Plan Follow up in the office in 4 months. Labs to be completed following visit. Recent labs reviewed with patient Continue medications as prescribed Orders: Orders Basic Metabolic Panel 4 Months B02.29 - Other postherpetic nervous system involvement, I10 - Essential (primary) hypertension, K51.90 - Ulcerative colitis, unspecified, without complications, N40.0 - Benign prostatic hy perplasia without lower urinary tract symptoms, W57.XXXA - Bitten or stung by nonvenomous insect and other nonvenomous arthropods, initial encounter Complete Blood Count Auto Diff 4 Months B02.29 - Other postherpetic nervous system involvement, I10 - Essential (primary) hypertension, K51.90 - Ulcerative colitis, unspecified, without complications, N40.0 - Benign prostatic hyperplasia without lower urinary tract symptoms, W57.XXXA - Bitten or stung by nonvenomous insect and other nonvenomous arthropods, initial encounter Lipid Panel 4 Months B02.29 - Other postherpetic nervous system involvement, I10 - Essential (primary) hypertension, K51.90 - Ulcerative colitis, unspecified, without complications, N40.0 - Benign prostatic hyperplasia without lower urinary tract symptoms, W57.XXXA - Bitten or stung by nonvenomous insect and other nonvenomous arthropods, initial encounter Medications: New doxycycline hyclate 100 mg PO BID 10 caps 0RF
[2025-01-23 07:55] VITALS: BP 104/70; PULSE 58; RESP 18; TEMP 36.6; O2SAT 99; BMI 31.7
== END 2025-01-23 08:16 | disposition home or self-care (01) ==
LOC: HO.HMCHD 07:43
PROVIDERS: Visit Provider Physician Assistant
DX: I10 Essential (primary) hypertension (principal); N40.0 Benign prostatic hyperplasia without lower urinary tract symptoms; B02.29 Other postherpetic nervous system involvement; K51.90 Ulcerative colitis, unspecified, without complications; W57.XXXA Bitten or stung by nonvenomous insect and other nonvenomous arthropods, initial encounter

== ENCOUNTER → 2025-01-23 07:43 | Outpatient (BNVA) | payer MEDICARE, SELFPAY | PROVIDERS: Visit Provider Physician Assistant | DX: I10 Essential (primary) hypertension (principal); N40.0 Benign prostatic hyperplasia without lower urinary tract symptoms; B02.29 Other postherpetic nervous system involvement; K51.90 Ulcerative colitis, unspecified, without complications; R42 Dizziness and giddiness; H91.93 Unspecified hearing loss, bilateral; T14.8XXA Other injury of unspecified body region, initial encounter; Z79.899 Other long term (current) drug therapy; W57.XXXA Bitten or stung by nonvenomous insect and other nonvenomous arthropods, initial encounter; Y93.9 Activity, unspecified; Y92.9 Unspecified place or not applicable; Y99.9 Unspecified external cause status | CPT/HCPCS: 99212 ==